=== PATIENT | female | born 1955 | race Caucasian/White ===

== ENCOUNTER 2018-06-06 12:34 | Inpatient (IN) | payer MEDICARE, OTHER ==
[~2018-06-06] VITALS: Ht 167.6 cm; Wt 78.1 kg
[~2018-06-06 12:34] MED LIST: ETOMIDATE 20 MG/10 ML ONE; MIDAZOLAM 1 MG/ML, 5ML ONE; SUCCINYLCHOLINE 20 MG/ML, 10ML ONE
[2018-06-06] MEDS ORDERED: OCTREOTIDE 500 MCG in SODIUM CHLORIDE 0.9% 249 ML IV PRN (12:39)
[2018-06-06] MEDS ORDERED: PANTOPRAZOLE 80 MG in SODIUM CHLORIDE 0.9% 100 ML IV SCH (12:39)
[2018-06-06] MEDS ORDERED: PANTOPRAZOLE 80 MG in SODIUM CHLORIDE 0.9% 50 ML IVPB ONE (12:39)
[2018-06-06] MEDS ORDERED: SODIUM CHLORIDE 0.9% 1,000 ML IV ONE (12:39)
[2018-06-06] MEDS ORDERED: ONDANSETRON 2MG/ML, 2ML ONE (12:55)
[2018-06-06] MEDS ORDERED: SODIUM CHLORIDE FLUSH 10ML SYR IVF ONE (13:00)
[2018-06-06] MEDS ORDERED: SODIUM CHLORIDE 0.9% 1,000ML IVBOLUS ONE (13:00)
[2018-06-06] MEDS ORDERED: OCTREOTIDE 100MCG/ML, 1ML (0.1MG/ML) IV ONE (13:00)
[2018-06-06] MEDS ORDERED: ONDANSETRON 2MG/ML, 2ML IVPush ONE (13:00)
[2018-06-06] MEDS ORDERED: OCTREOTIDE 100MCG/ML, 1ML (0.1MG/ML) ONE (13:01)
[2018-06-06] MEDS ORDERED: LORazepam 2 MG/ML, 1ML ONE ×2 (13:04→14:39)
[2018-06-06 13:08] LABS: MEAN CORPUSCULAR HEMOGLOBIN 24.7 pg (27.0-34.8); MEAN CORPUSCULAR HGB CONC 32.3 g/dL (32.4-35.8); MEAN CORPUSCULAR VOLUME 76.4 fL (80-100); MEAN PLATELET VOLUME 9.3 fL (7.4-10.4); PLATELET COUNT 189 x10^3/uL (130-400); RED BLOOD COUNT 4.25 x10^6/uL (3.82-5.3); RED CELL DISTRIBUTION WIDTH 23.9 % (9.6-15.2)
[2018-06-06 13:15] LABS: INTERNATIONAL NORMALIZED RATIO 1.31 (0.93-1.1); PROTHROMBIN TIME 13.4 Seconds (9.6-11.5)
[2018-06-06 13:16] LABS: ALANINE AMINOTRANSFERASE 16 U/L (12-78); ALBUMIN 2.4 g/dL (3.4-5.0); ANION GAP 8 mmol/L (5-15); CALCIUM 7.3 mg/dL (8.5-10.1); CHLORIDE 111 mmol/L (98-107); CREATININE 0.74 mg/dL (0.55-1.02)
[2018-06-06 13:19] LABS: ALKALINE PHOSPHATASE 108 U/L (45-117); BILIRUBIN,TOTAL 1.3 mg/dL (0.2-1.0); TOTAL PROTEIN 6.3 g/dL (6.4-8.2)
[2018-06-06 13:20] LABS: BASOPHILS # (AUTO) 0.06 x10^3/uL (0-0.1); BASOPHILS % (AUTO) 1 % (0-1); EOSINOPHILS # (AUTO) 0.06 x10^3/uL (0-0.4); EOSINOPHILS % (AUTO) 1 % (1-7); LYMPHOCYTES # (AUTO) 1.12 x10^3/uL (1-3.4); LYMPHOCYTES % (AUTO) 11 % (22-44); MD SCAN; MONOCYTES # (AUTO) 0.65 x10^3/uL (0.2-0.8); MONOCYTES % (AUTO) 6 % (2-9); NEUTROPHILS # (AUTO) 8.41 x10^3/uL (1.8-6.8); NEUTROPHILS % (AUTO) 82 % (42-75)
[2018-06-06] MEDS ORDERED: LORazepam 2 MG/ML, 1ML IVPush ONE ×2 (13:30→15:00)
[2018-06-06 14:19] VITALS: BP 89/56
[2018-06-06] MEDS ORDERED: SODIUM CHLORIDE FLUSH 10ML SYR IVF PRN (14:30)
[2018-06-06] MEDS ORDERED: THIAMINE 100 MG in SODIUM CHLORIDE 0.9% 50 ML IVPB ONE (14:30)
[2018-06-06 14:34] VITALS: BP 98/50
[2018-06-06 14:49] VITALS: BP 101/52
[2018-06-06] MEDS ORDERED: MIDAZOLAM 1 MG/ML, 2ML ONE ×2 (15:28→15:45)
[2018-06-06] MEDS ORDERED: FENTANYL PF 100 MCG/2ML ONE (15:29)
[2018-06-06] MEDS ORDERED: PROPOFOL 100 ML IV PRN (15:54)
[2018-06-06] MEDS ORDERED: PROPOFOL 100 ML IV ONE (15:56)
[2018-06-06] MEDS ORDERED: LABETALOL 5MG/ML, 20ML IVPush PRN (16:00)
[2018-06-06] MEDS ORDERED: ZIPRASIDONE 20 MG INJ IM PRN (16:00)
[2018-06-06] MEDS ORDERED: ONDANSETRON 2MG/ML, 2ML IVPush PRN (16:00)
[2018-06-06] MEDS ORDERED: ONDANSETRON ODT 4 MG PO PRN (16:00)
[2018-06-06] MEDS ORDERED: SUCCINYLCHOLINE 20 MG/ML, 10ML IVPush ONE (16:00)
[2018-06-06] MEDS ORDERED: ETOMIDATE 40 MG/20 ML IVPush ONE (16:00)
[2018-06-06 16:23] VITALS: BP 107/62
[2018-06-06] MEDS ORDERED: MIDAZOLAM 1 MG/ML, 2ML IVPush ONE ×2 (16:30→18:30)
[2018-06-06 16:40] VITALS: BP 93/60
[2018-06-06] MEDS ORDERED: ZIPRASIDONE 20 MG INJ IM ONE (16:46)
[2018-06-06] MEDS: DIAZEPAM 5 MG/ML, 10ML VIAL IV SCH ×2 (17:00→23:51)
[2018-06-06 17:04] LABS: FOLATE LEVEL 4.4 ng/mL (3.1-17.5); FREE T4 (FREE THYROXINE) 0.96 ng/dL (0.76-1.46); THYROID STIMULATING HORMONE 3.32 mIU/L (0.358-3.740)
[2018-06-06 17:06] LABS: MICROSCOPIC INDICATED
[2018-06-06 17:07] LABS: CULTURE INDICATED? YES
[2018-06-06] MEDS ORDERED: PHARMACY MAY ADJ FOR RENAL FX MC SCH (18:00)
[2018-06-06] MEDS ORDERED: LIDOCAINE-MPF 1%, 2ML ENDO PRN (18:00)
[2018-06-06] MEDS ORDERED: MAGNESIUM SULFATE 4 GM in SODIUM CHLORIDE 0.9% 100 ML IV ONE ×2 (18:00)
[2018-06-06] MEDS ORDERED: FENTANYL PF 100 MCG/2ML IV ONE (18:30)
[2018-06-06] MEDS ORDERED: MAGNESIUM SULFATE IN WATER 50 ML IVPB ONE (19:00)
[2018-06-06] MEDS: POTASSIUM CHLORIDE 20 MEQ, MAGNESIUM SULFATE 1 GM, MVI ADULT 10 ML, THIAMINE 200 MG, FO... IV SCH (21:51)
[2018-06-06] MEDS: PANTOPRAZOLE 80 MG in SODIUM CHLORIDE 0.9% 100 ML IV SCH (21:51)
[2018-06-06] MEDS: OCTREOTIDE 500 MCG in SODIUM CHLORIDE 0.9% 249 ML IV SCH (22:42)
[2018-06-06] MEDS ORDERED: ACETAMINOPHEN 650 MG SUPP ONE (23:31)
[2018-06-06] MEDS: ACETAMINOPHEN 325 MG TABLET PO PRN (23:39)
[2018-06-07] MEDS: PROPOFOL 100 ML IV PRN ×3 (01:36→18:24)
[2018-06-07] MEDS: DIAZEPAM 5 MG/ML, 10ML VIAL IV SCH ×4 (04:27→22:56)
[2018-06-07 04:36] LABS: MEAN CORPUSCULAR HEMOGLOBIN 26.7 pg (27.0-34.8); MEAN CORPUSCULAR HGB CONC 32.7 g/dL (32.4-35.8); MEAN CORPUSCULAR VOLUME 81.7 fL (80-100); MEAN PLATELET VOLUME 9.2 fL (7.4-10.4); PLATELET COUNT 150 x10^3/uL (130-400); RED BLOOD COUNT 4.27 x10^6/uL (3.82-5.3); RED CELL DISTRIBUTION WIDTH 22.9 % (9.6-15.2)
[2018-06-07 04:54] LABS: ANISOCYTOSIS 1+; BASOPHILS # (AUTO) 0.08 x10^3/uL (0-0.1); BASOPHILS % (AUTO) 1 % (0-1); EOSINOPHILS % (AUTO) 1 % (1-7); LYMPHOCYTES # (AUTO) 0.94 x10^3/uL (1-3.4); LYMPHOCYTES % (AUTO) 8 % (22-44); MD MORPH REVIEW ONLY; MONOCYTES # (AUTO) 0.69 x10^3/uL (0.2-0.8); MONOCYTES % (AUTO) 6 % (2-9); NEUTROPHILS # (AUTO) 10.69 x10^3/uL (1.8-6.8); NEUTROPHILS % (AUTO) 86 % (42-75)
[2018-06-07 04:55] LABS: <PLATELET ESTIMATE> ADEQUATE; HYPOCHROMIA 1+; OVALOCYTES 1+; POLYCHROMASIA 1+
[2018-06-07 04:56] LABS: LARGE PLATELETS 1+
[2018-06-07 04:57] LABS: ALANINE AMINOTRANSFERASE 14 U/L (12-78); ALKALINE PHOSPHATASE 98 U/L (45-117); BILIRUBIN,TOTAL 2.6 mg/dL (0.2-1.0); CREATININE 0.75 mg/dL (0.55-1.02); TOTAL PROTEIN 5.7 g/dL (6.4-8.2)
[2018-06-07 05:17] LABS: ALBUMIN 2.2 g/dL (3.4-5.0); ANION GAP 6 mmol/L (5-15); CALCIUM 6.7 mg/dL (8.5-10.1); CHLORIDE 112 mmol/L (98-107)
[2018-06-07] MEDS: PANTOPRAZOLE 80 MG in SODIUM CHLORIDE 0.9% 100 ML IV SCH ×2 (07:45→17:23)
[2018-06-07] MEDS: SENNA/DOCUSATE TABLET PO SCH (09:00)
[2018-06-07] MEDS ORDERED: LACTULOSE 3.3 GM/5 ML ORAL.SOL RC ONE ×2 (09:00)
[2018-06-07] MEDS: OCTREOTIDE 500 MCG in SODIUM CHLORIDE 0.9% 249 ML IV SCH (10:12)
[2018-06-07] MEDS: INSULIN LISPRO 100 UNITS/ML, PEN SQ-INSULIN SCH ×3 (11:24→21:00)
[2018-06-07] MEDS ORDERED: IRON SUCROSE COMPLEX 100MG/5ML IV SCH (12:00)
[2018-06-07] MEDS: ERGOCALCIFEROL 50,000 UNIT CAPSULE PO SCH (12:01)
[2018-06-07] MEDS: LEVOTHYROXINE 100 MCG INJ IVPush SCH (12:01)
[2018-06-07] MEDS: PIPERACILLIN/TAZO/PMX 3.375GM 50 ML IV SCH ×2 (13:58→18:10)
[2018-06-07] MEDS: POTASSIUM CHLORIDE 20 MEQ, MAGNESIUM SULFATE 1 GM, MVI ADULT 10 ML, THIAMINE 200 MG, FO... IV SCH (21:05)
[2018-06-07] MEDS: PANTOPRAZOLE 40 MG IV IVPush SCH (21:08)
[2018-06-08] MEDS: PIPERACILLIN/TAZO/PMX 3.375GM 50 ML IV SCH ×4 (00:33→18:27)
[2018-06-08] MEDS: PROPOFOL 100 ML IV PRN ×3 (01:32→20:30)
[2018-06-08] MEDS: ALBUTEROL/IPRATROPIUM 2.5MG/0.5MG, 3 ML INLINE SCH ×6 (02:30→22:41)
[2018-06-08] MEDS: INSULIN LISPRO 100 UNITS/ML, PEN SQ-INSULIN SCH ×4 (03:42→21:21)
[2018-06-08] MEDS: DIAZEPAM 5 MG/ML, 10ML VIAL IV SCH ×4 (04:45→23:25)
[2018-06-08 05:30] LABS: CHLORIDE 111 mmol/L (98-107)
[2018-06-08 05:34] LABS: MEAN CORPUSCULAR HEMOGLOBIN 26.7 pg (27.0-34.8); MEAN CORPUSCULAR HGB CONC 32.5 g/dL (32.4-35.8); PLATELET COUNT 146 x10^3/uL (130-400); RED BLOOD COUNT 3.79 x10^6/uL (3.82-5.3); RED CELL DISTRIBUTION WIDTH 23.9 % (9.6-15.2)
[2018-06-08 05:41] LABS: ALANINE AMINOTRANSFERASE 14 U/L (12-78); ALBUMIN 2.1 g/dL (3.4-5.0); ALKALINE PHOSPHATASE 82 U/L (45-117); ANION GAP 8 mmol/L (5-15); BILIRUBIN,TOTAL 1.2 mg/dL (0.2-1.0); CALCIUM 7.1 mg/dL (8.5-10.1); CREATININE 0.78 mg/dL (0.55-1.02); TOTAL PROTEIN 5.5 g/dL (6.4-8.2)
[2018-06-08 05:57] LABS: BASOPHILS # (AUTO) 0.09 x10^3/uL (0-0.1); BASOPHILS % (AUTO) 1 % (0-1); EOSINOPHILS # (AUTO) 0.23 x10^3/uL (0-0.4); EOSINOPHILS % (AUTO) 2 % (1-7); LYMPHOCYTES # (AUTO) 0.79 x10^3/uL (1-3.4); LYMPHOCYTES % (AUTO) 7 % (22-44); MD SCAN; MONOCYTES # (AUTO) 0.72 x10^3/uL (0.2-0.8); MONOCYTES % (AUTO) 7 % (2-9); NEUTROPHILS # (AUTO) 9.27 x10^3/uL (1.8-6.8); NEUTROPHILS % (AUTO) 84 % (42-75)
[2018-06-08] MEDS: SENNA/DOCUSATE TABLET PO SCH (07:28)
[2018-06-08] MEDS: OCTREOTIDE 500 MCG in SODIUM CHLORIDE 0.9% 249 ML IV SCH (07:33)
[2018-06-08] MEDS: PANTOPRAZOLE 40 MG IV IVPush SCH ×2 (07:33→20:30)
[2018-06-08] MEDS: LEVOTHYROXINE 100 MCG INJ IVPush SCH (07:35)
[2018-06-08] MEDS ORDERED: LACTULOSE 3.3 GM/5 ML ORAL.SOL RC ONE (09:30)
[2018-06-08] MEDS ORDERED: ALBUMIN HUMAN 25% 100 ML IV ONE (14:00)
[2018-06-08] MEDS ORDERED: FUROSEMIDE 20 MG/2 ML IV ONE (15:30)
[2018-06-08] MEDS: POTASSIUM CHLORIDE 20 MEQ, MAGNESIUM SULFATE 1 GM, MVI ADULT 10 ML, THIAMINE 200 MG, FO... IV SCH (21:14)
[2018-06-09] MEDS: PIPERACILLIN/TAZO/PMX 3.375GM 50 ML IV SCH ×2 (00:37→07:22)
[2018-06-09] MEDS: PROPOFOL 100 ML IV PRN ×5 (00:40→23:31)
[2018-06-09] MEDS: ALBUTEROL/IPRATROPIUM 2.5MG/0.5MG, 3 ML INLINE SCH ×6 (02:39→22:30)
[2018-06-09] MEDS: OCTREOTIDE 500 MCG in SODIUM CHLORIDE 0.9% 249 ML IV SCH ×2 (04:53→23:32)
[2018-06-09] MEDS: DIAZEPAM 5 MG/ML, 10ML VIAL IV SCH ×4 (04:54→23:31)
[2018-06-09 05:17] LABS: MEAN CORPUSCULAR HEMOGLOBIN 27.7 pg (27.0-34.8); MEAN CORPUSCULAR HGB CONC 33.4 g/dL (32.4-35.8); MEAN CORPUSCULAR VOLUME 82.8 fL (80-100); MEAN PLATELET VOLUME 8.9 fL (7.4-10.4); PLATELET COUNT 119 x10^3/uL (130-400); RED BLOOD COUNT 3.17 x10^6/uL (3.82-5.3); RED CELL DISTRIBUTION WIDTH 23.9 % (9.6-15.2)
[2018-06-09 05:50] LABS: BASOPHILS # (AUTO) 0.04 x10^3/uL (0-0.1); BASOPHILS % (AUTO) 1 % (0-1); EOSINOPHILS # (AUTO) 0.14 x10^3/uL (0-0.4); EOSINOPHILS % (AUTO) 2 % (1-7); LYMPHOCYTES % (AUTO) 8 % (22-44); MD SCAN; MONOCYTES # (AUTO) 0.55 x10^3/uL (0.2-0.8); MONOCYTES % (AUTO) 8 % (2-9); NEUTROPHILS # (AUTO) 5.94 x10^3/uL (1.8-6.8); NEUTROPHILS % (AUTO) 82 % (42-75)
[2018-06-09] MEDS: INSULIN LISPRO 100 UNITS/ML, PEN SQ-INSULIN SCH ×4 (05:59→23:00)
[2018-06-09] MEDS: CEFTRIAXONE 1,000 MG in SODIUM CHLORIDE 0.9% 50 ML IV SCH (08:12)
[2018-06-09] MEDS: LEVOTHYROXINE 100 MCG INJ IVPush SCH (08:12)
[2018-06-09] MEDS: PANTOPRAZOLE 40 MG IV IVPush SCH ×2 (08:12→20:27)
[2018-06-09] MEDS: NOREPINEPHRINE 4 MG in SODIUM CHLORIDE 0.9% 246 ML IV PRN ×2 (08:13→17:50)
[2018-06-09] MEDS: SENNA/DOCUSATE TABLET PO SCH (08:17)
[2018-06-09] MEDS: POTASSIUM CHLORIDE 20 MEQ, MAGNESIUM SULFATE 1 GM, MVI ADULT 10 ML, THIAMINE 200 MG, FO... IV SCH (20:25)
[2018-06-10] MEDS: ALBUTEROL/IPRATROPIUM 2.5MG/0.5MG, 3 ML INLINE SCH ×6 (02:18→22:18)
[2018-06-10] MEDS: PROPOFOL 100 ML IV PRN (03:43)
[2018-06-10] MEDS ORDERED: CATHFLO-ALTEPLASE 2 MG/2 ML CATHFLUSH ONE (04:00)
[2018-06-10 05:16] LABS: MEAN CORPUSCULAR HEMOGLOBIN 27.2 pg (27.0-34.8); MEAN CORPUSCULAR HGB CONC 32.8 g/dL (32.4-35.8); MEAN PLATELET VOLUME 9.2 fL (7.4-10.4); PLATELET COUNT 127 x10^3/uL (130-400); RED CELL DISTRIBUTION WIDTH 23.7 % (9.6-15.2)
[2018-06-10] MEDS: DIAZEPAM 5 MG/ML, 10ML VIAL IV SCH ×4 (05:25→23:27)
[2018-06-10] MEDS: INSULIN LISPRO 100 UNITS/ML, PEN SQ-INSULIN SCH ×2 (05:39→12:30)
[2018-06-10 05:55] LABS: BASOPHILS # (AUTO) 0.03 x10^3/uL (0-0.1); BASOPHILS % (AUTO) 1 % (0-1); EOSINOPHILS # (AUTO) 0.13 x10^3/uL (0-0.4); EOSINOPHILS % (AUTO) 3 % (1-7); LYMPHOCYTES # (AUTO) 0.42 x10^3/uL (1-3.4); LYMPHOCYTES % (AUTO) 8 % (22-44); MD SCAN; MONOCYTES # (AUTO) 0.46 x10^3/uL (0.2-0.8); MONOCYTES % (AUTO) 9 % (2-9); NEUTROPHILS # (AUTO) 4.19 x10^3/uL (1.8-6.8); NEUTROPHILS % (AUTO) 80 % (42-75)
[2018-06-10] MEDS: PANTOPRAZOLE 40 MG IV IVPush SCH ×2 (08:35→19:55)
[2018-06-10] MEDS: CEFTRIAXONE 1,000 MG in SODIUM CHLORIDE 0.9% 50 ML IV SCH (08:44)
[2018-06-10] MEDS: SENNA/DOCUSATE TABLET PO SCH (09:00)
[2018-06-10] MEDS: QUETIAPINE 25MG TABLET PO SCH ×2 (09:00→15:04)
[2018-06-10] MEDS: LEVOTHYROXINE 100 MCG INJ IVPush SCH (09:00)
[2018-06-10] MEDS ORDERED: DEXMEDETOMIDINE 1,000 MCG in SODIUM CHLORIDE 0.9% 240 ML IV PRN (15:00)
[2018-06-10] MEDS: OCTREOTIDE 500 MCG in SODIUM CHLORIDE 0.9% 249 ML IV SCH (19:45)
[2018-06-10] MEDS: NOREPINEPHRINE 4 MG in SODIUM CHLORIDE 0.9% 246 ML IV PRN (19:46)
[2018-06-10] MEDS: POTASSIUM CHLORIDE 20 MEQ, MAGNESIUM SULFATE 1 GM, MVI ADULT 10 ML, THIAMINE 200 MG, FO... IV SCH (23:27)
[2018-06-11] MEDS: QUETIAPINE 25MG TABLET PO SCH ×3 (00:18→17:00)
[2018-06-11] MEDS: ALBUTEROL/IPRATROPIUM 2.5MG/0.5MG, 3 ML INLINE SCH ×4 (02:34→14:43)
[2018-06-11 03:06] LABS: MEAN CORPUSCULAR HEMOGLOBIN 27.4 pg (27.0-34.8); MEAN CORPUSCULAR VOLUME 82.9 fL (80-100); MEAN PLATELET VOLUME 8.2 fL (7.4-10.4); PLATELET COUNT 129 x10^3/uL (130-400); RED BLOOD COUNT 3.47 x10^6/uL (3.82-5.3); RED CELL DISTRIBUTION WIDTH 24.6 % (9.6-15.2)
[2018-06-11 03:17] LABS: ANION GAP 7 mmol/L (5-15); CALCIUM 7.2 mg/dL (8.5-10.1); CHLORIDE 113 mmol/L (98-107); CREATININE 0.47 mg/dL (0.55-1.02)
[2018-06-11 03:23] LABS: BASOPHILS # (AUTO) 0.04 x10^3/uL (0-0.1); BASOPHILS % (AUTO) 1 % (0-1); EOSINOPHILS # (AUTO) 0.11 x10^3/uL (0-0.4); EOSINOPHILS % (AUTO) 2 % (1-7); LYMPHOCYTES # (AUTO) 0.49 x10^3/uL (1-3.4); LYMPHOCYTES % (AUTO) 10 % (22-44); MD SCAN; MONOCYTES % (AUTO) 8 % (2-9); NEUTROPHILS # (AUTO) 3.78 x10^3/uL (1.8-6.8); NEUTROPHILS % (AUTO) 78 % (42-75)
[2018-06-11] MEDS: DIAZEPAM 5 MG/ML, 10ML VIAL IV SCH ×3 (05:00→10:53)
[2018-06-11] MEDS: CEFTRIAXONE 1,000 MG in SODIUM CHLORIDE 0.9% 50 ML IV SCH (07:38)
[2018-06-11] MEDS ORDERED: MAGNESIUM SULFATE 4 GM in SODIUM CHLORIDE 0.9% 100 ML IV ONE (08:30)
[2018-06-11] MEDS ORDERED: POTASSIUM CHLORIDE 10% 40 MEQ/30 ML UDC PO ONE (08:30)
[2018-06-11] MEDS ORDERED: MAGNESIUM SULFATE PMX 4GM/100M 100 ML IV ONE (09:00)
[2018-06-11] MEDS: SENNA/DOCUSATE TABLET PO SCH (09:23)
[2018-06-11] MEDS: LEVOTHYROXINE 100 MCG INJ IVPush SCH (09:23)
[2018-06-11] MEDS ORDERED: SODIUM CHLORIDE 0.9%, 500ML IVBOLUS ONE (10:30)
[2018-06-11] MEDS ORDERED: DIAZEPAM 5 MG/ML, 10ML VIAL IV PRN (12:30)
[2018-06-11] MEDS: NOREPINEPHRINE 4 MG in SODIUM CHLORIDE 0.9% 246 ML IV PRN (14:18)
[2018-06-11] MEDS ORDERED: ALBUTEROL/IPRATROPIUM 2.5MG/0.5MG, 3 ML NPPB PRN (16:00)
[2018-06-11] MEDS: ALBUTEROL/IPRATROPIUM 2.5MG/0.5MG, 3 ML NPPB SCH ×3 (16:00→22:42)
[2018-06-11] MEDS ORDERED: ALBUTEROL/IPRATROPIUM 2.5MG/0.5MG, 3 ML NPPB SCH (18:30)
[2018-06-11] MEDS ORDERED: FUROSEMIDE 40 MG/4 ML IV ONE (21:30)
[2018-06-11] MEDS ORDERED: FUROSEMIDE 40 MG/4 ML ONE (21:34)
[2018-06-11] MEDS: POTASSIUM CHLORIDE 20 MEQ, MAGNESIUM SULFATE 1 GM, MVI ADULT 10 ML, THIAMINE 200 MG, FO... IV SCH (22:10)
[2018-06-12] MEDS: QUETIAPINE 25MG TABLET PO SCH ×3 (01:00→16:23)
[2018-06-12] MEDS: ALBUTEROL/IPRATROPIUM 2.5MG/0.5MG, 3 ML NPPB SCH ×3 (03:39→11:34)
[2018-06-12 05:12] LABS: ALBUMIN 2.4 g/dL (3.4-5.0); ANION GAP 6 mmol/L (5-15); CALCIUM 7.3 mg/dL (8.5-10.1); CHLORIDE 107 mmol/L (98-107)
[2018-06-12 05:13] LABS: MEAN CORPUSCULAR HEMOGLOBIN 27.6 pg (27.0-34.8); MEAN CORPUSCULAR HGB CONC 33.1 g/dL (32.4-35.8); MEAN CORPUSCULAR VOLUME 83.3 fL (80-100); MEAN PLATELET VOLUME 8.2 fL (7.4-10.4); PLATELET COUNT 167 x10^3/uL (130-400); RED BLOOD COUNT 3.32 x10^6/uL (3.82-5.3); RED CELL DISTRIBUTION WIDTH 25.7 % (9.6-15.2)
[2018-06-12 05:17] LABS: ALANINE AMINOTRANSFERASE 14 U/L (12-78); ALKALINE PHOSPHATASE 83 U/L (45-117); BILIRUBIN,TOTAL 0.9 mg/dL (0.2-1.0); CREATININE 0.55 mg/dL (0.55-1.02); TOTAL PROTEIN 5.8 g/dL (6.4-8.2); TRIGLYCERIDES 137 mg/dL (50-200)
[2018-06-12 05:45] LABS: ANISOCYTOSIS 2+; BASOPHILS # (AUTO) 0.04 x10^3/uL (0-0.1); BASOPHILS % (AUTO) 1 % (0-1); EOSINOPHILS % (AUTO) 1 % (1-7); LYMPHOCYTES # (AUTO) 0.58 x10^3/uL (1-3.4); LYMPHOCYTES % (AUTO) 8 % (22-44); MD MORPH REVIEW ONLY; MONOCYTES # (AUTO) 0.51 x10^3/uL (0.2-0.8); MONOCYTES % (AUTO) 7 % (2-9); NEUTROPHILS # (AUTO) 6.17 x10^3/uL (1.8-6.8); NEUTROPHILS % (AUTO) 83 % (42-75); POLYCHROMASIA 1+
[2018-06-12 05:46] LABS: <PLATELET ESTIMATE> ADEQUATE; <PLT MORPHOLOGY> NORMAL PLT MORPH
[2018-06-12 05:55] LABS: FIO2 100 %
[2018-06-12 05:56] LABS: O2 FLOW 60 L/min
[2018-06-12] MEDS: NOREPINEPHRINE 4 MG in SODIUM CHLORIDE 0.9% 246 ML IV PRN ×2 (06:03→15:19)
[2018-06-12] MEDS: CEFTRIAXONE 1,000 MG in SODIUM CHLORIDE 0.9% 50 ML IV SCH (09:31)
[2018-06-12] MEDS: LEVOTHYROXINE 100 MCG INJ IVPush SCH (09:32)
[2018-06-12] MEDS: SENNA/DOCUSATE TABLET PO SCH (09:32)
[2018-06-12] MEDS: PANTOPRAZOLE 40 MG IV IVPush SCH (09:32)
[2018-06-12] MEDS: ALBUTEROL/IPRATROPIUM 2.5MG/0.5MG, 3 ML IPPB SCH ×3 (14:31→22:50)
[2018-06-12] MEDS ORDERED: MAGNESIUM SULFATE PMX 4GM/100M 100 ML IVPB ONE (17:00)
[2018-06-12] MEDS ORDERED: POTASSIUM CHLORIDE 10% 40 MEQ/30 ML UDC PO ONE (17:00)
[2018-06-12] MEDS ORDERED: MAGNESIUM SULFATE IN WATER 50 ML IVPB ONE (17:00)
[2018-06-12] MEDS ORDERED: MAGNESIUM SULFATE 4 GM in SODIUM CHLORIDE 0.9% 100 ML IV ONE (17:00)
[2018-06-13] MEDS: NOREPINEPHRINE 4 MG in SODIUM CHLORIDE 0.9% 246 ML IV PRN ×3 (00:34→20:51)
[2018-06-13] MEDS: ALBUTEROL/IPRATROPIUM 2.5MG/0.5MG, 3 ML IPPB SCH ×2 (02:47→06:50)
[2018-06-13 04:59] LABS: MEAN CORPUSCULAR HEMOGLOBIN 27.1 pg (27.0-34.8); MEAN CORPUSCULAR HGB CONC 32.6 g/dL (32.4-35.8); MEAN PLATELET VOLUME 8.5 fL (7.4-10.4); PLATELET COUNT 151 x10^3/uL (130-400); RED BLOOD COUNT 3.16 x10^6/uL (3.82-5.3); RED CELL DISTRIBUTION WIDTH 26.3 % (9.6-15.2)
[2018-06-13 05:03] LABS: ALANINE AMINOTRANSFERASE 11 U/L (12-78); ALBUMIN 2.2 g/dL (3.4-5.0); ANION GAP 6 mmol/L (5-15); CALCIUM 7.1 mg/dL (8.5-10.1); CHLORIDE 110 mmol/L (98-107); CREATININE 0.45 mg/dL (0.55-1.02)
[2018-06-13 05:05] LABS: ALKALINE PHOSPHATASE 91 U/L (45-117); BILIRUBIN,TOTAL 0.6 mg/dL (0.2-1.0); TOTAL PROTEIN 5.6 g/dL (6.4-8.2)
[2018-06-13 06:01] LABS: BASOPHILS # (AUTO) 0.03 x10^3/uL (0-0.1); BASOPHILS % (AUTO) 1 % (0-1); EOSINOPHILS # (AUTO) 0.08 x10^3/uL (0-0.4); EOSINOPHILS % (AUTO) 2 % (1-7); LYMPHOCYTES # (AUTO) 0.45 x10^3/uL (1-3.4); LYMPHOCYTES % (AUTO) 9 % (22-44); MD SCAN; MONOCYTES # (AUTO) 0.32 x10^3/uL (0.2-0.8); MONOCYTES % (AUTO) 6 % (2-9); NEUTROPHILS # (AUTO) 4.35 x10^3/uL (1.8-6.8); NEUTROPHILS % (AUTO) 83 % (42-75)
[2018-06-13] MEDS: CEFTRIAXONE 1,000 MG in SODIUM CHLORIDE 0.9% 50 ML IV SCH (07:40)
[2018-06-13] MEDS: LEVOTHYROXINE 100 MCG INJ IVPush SCH (08:52)
[2018-06-13] MEDS: PANTOPRAZOLE 40 MG IV IVPush SCH (08:52)
[2018-06-13] MEDS: SENNA/DOCUSATE TABLET PO SCH (09:05)
[2018-06-13] MEDS ORDERED: PROPOFOL 100 ML IV ONE (10:59)
[2018-06-13] MEDS ORDERED: MIDAZOLAM 1 MG/ML, 5ML IVPush ONE (11:00)
[2018-06-13] MEDS ORDERED: PROPOFOL 100 ML IV PRN ×2 (11:00→11:01)
[2018-06-13] MEDS ORDERED: SUCCINYLCHOLINE 20 MG/ML, 10ML IVPush ONE (11:00)
[2018-06-13] MEDS ORDERED: GLUCAGON 1 MG IM PRN (11:30)
[2018-06-13] MEDS ORDERED: SENNA/DOCUSATE TABLET NG PRN (11:30)
[2018-06-13] MEDS: ALBUTEROL/IPRATROPIUM 2.5MG/0.5MG, 3 ML INLINE SCH ×4 (11:30→22:09)
[2018-06-13] MEDS ORDERED: PHARMACY MAY ADJ FOR RENAL FX MC SCH (11:30)
[2018-06-13] MEDS ORDERED: DEXTROSE 4 GM TAB.CHEW PO PRN (11:30)
[2018-06-13] MEDS ORDERED: LIDOCAINE-MPF 1%, 2ML ENDO PRN (11:30)
[2018-06-13] MEDS ORDERED: DEXTROSE 50%, 50ML SYRINGE IVPush PRN (11:30)
[2018-06-13 11:38] LABS: CHOL/HDL RATIO 3.9
[2018-06-13] MEDS: INSULIN LISPRO 100 UNITS/ML, PEN SQ-INSULIN SCH ×3 (11:56→20:59)
[2018-06-13] MEDS: SODIUM CHLORIDE FLUSH 10ML SYR IVF SCH ×2 (11:58→21:00)
[2018-06-13 12:23] LABS: FIO2 100 %
[2018-06-13] MEDS: LACTULOSE 20 GM/30 ML UDC NG PRN (14:53)
[2018-06-13] MEDS ORDERED: SODIUM CHLORIDE 0.9%, 500ML IVBOLUS ONE (15:30)
[2018-06-13] MEDS: ACETAMINOPHEN 325 MG TABLET PO PRN (16:26)
[2018-06-13] MEDS ORDERED: MIDAZOLAM 1 MG/ML, 5ML ONE (19:00)
[2018-06-13] MEDS ORDERED: SUCCINYLCHOLINE 20 MG/ML, 10ML ONE (19:00)
[2018-06-14] MEDS: ALBUTEROL/IPRATROPIUM 2.5MG/0.5MG, 3 ML INLINE SCH ×6 (02:08→22:51)
[2018-06-14 04:18] LABS: ANION GAP 5 mmol/L (5-15); CALCIUM 7.9 mg/dL (8.5-10.1); CHLORIDE 111 mmol/L (98-107); CREATININE 0.52 mg/dL (0.55-1.02)
[2018-06-14 04:25] LABS: MEAN CORPUSCULAR HGB CONC 32.2 g/dL (32.4-35.8); MEAN CORPUSCULAR VOLUME 83.7 fL (80-100); MEAN PLATELET VOLUME 8.7 fL (7.4-10.4); PLATELET COUNT 164 x10^3/uL (130-400); RED BLOOD COUNT 3.24 x10^6/uL (3.82-5.3); RED CELL DISTRIBUTION WIDTH 25.2 % (9.6-15.2)
[2018-06-14 04:46] LABS: ANISOCYTOSIS 1+; BASOPHILS # (AUTO) 0.02 x10^3/uL (0-0.1); BASOPHILS % (AUTO) 0 % (0-1); EOSINOPHILS # (AUTO) 0.07 x10^3/uL (0-0.4); EOSINOPHILS % (AUTO) 1 % (1-7); LYMPHOCYTES # (AUTO) 0.42 x10^3/uL (1-3.4); LYMPHOCYTES % (AUTO) 5 % (22-44); MD MORPH REVIEW ONLY; MONOCYTES # (AUTO) 0.38 x10^3/uL (0.2-0.8); MONOCYTES % (AUTO) 5 % (2-9); NEUTROPHILS # (AUTO) 6.87 x10^3/uL (1.8-6.8); NEUTROPHILS % (AUTO) 89 % (42-75); POLYCHROMASIA 1+
[2018-06-14 04:47] LABS: <PLATELET ESTIMATE> ADEQUATE; <PLT MORPHOLOGY> NORMAL PLT MORPH; OVALOCYTES 1+
[2018-06-14] MEDS: INSULIN LISPRO 100 UNITS/ML, PEN SQ-INSULIN SCH ×4 (06:40→23:31)
[2018-06-14] MEDS ORDERED: MAGNESIUM SULFATE PMX 4GM/100M 100 ML IVPB ONE (07:00)
[2018-06-14] MEDS: CEFTRIAXONE 1,000 MG in SODIUM CHLORIDE 0.9% 50 ML IV SCH (08:09)
[2018-06-14] MEDS: SENNA/DOCUSATE TABLET PO SCH (08:54)
[2018-06-14] MEDS: PANTOPRAZOLE 40 MG IV IVPush SCH (08:54)
[2018-06-14] MEDS: SODIUM CHLORIDE FLUSH 10ML SYR IVF SCH ×2 (08:56→21:43)
[2018-06-14] MEDS: LEVOTHYROXINE 100 MCG INJ IVPush SCH (10:16)
[2018-06-14] MEDS: ERGOCALCIFEROL 50,000 UNIT CAPSULE PO SCH (11:04)
[2018-06-14] MEDS: THIAMINE 100MG TABLET PO SCH (14:36)
[2018-06-14] MEDS: FOLIC ACID 1 MG TABLET PO SCH (14:36)
[2018-06-14] MEDS: POLYETHYLENE GLYCOL 17 GM PACKET PO PRN (23:31)
[2018-06-14] MEDS: SENNOSIDES 8.8 MG/5 ML ORAL SOL NG PRN (23:42)
[2018-06-15] MEDS: ALBUTEROL/IPRATROPIUM 2.5MG/0.5MG, 3 ML INLINE SCH ×6 (02:33→22:24)
[2018-06-15 04:21] LABS: ANION GAP 4 mmol/L (5-15); CALCIUM 7.8 mg/dL (8.5-10.1); CHLORIDE 106 mmol/L (98-107); CREATININE 0.54 mg/dL (0.55-1.02); MEAN CORPUSCULAR HEMOGLOBIN 26.9 pg (27.0-34.8); MEAN CORPUSCULAR HGB CONC 32.4 g/dL (32.4-35.8); MEAN CORPUSCULAR VOLUME 83.2 fL (80-100); MEAN PLATELET VOLUME 8.5 fL (7.4-10.4); PLATELET COUNT 171 x10^3/uL (130-400); RED BLOOD COUNT 3.02 x10^6/uL (3.82-5.3); RED CELL DISTRIBUTION WIDTH 26.6 % (9.6-15.2); TRIGLYCERIDES 96 mg/dL (50-200)
[2018-06-15 04:45] LABS: BASOPHILS # (AUTO) 0.04 x10^3/uL (0-0.1); BASOPHILS % (AUTO) 1 % (0-1); EOSINOPHILS # (AUTO) 0.12 x10^3/uL (0-0.4); EOSINOPHILS % (AUTO) 2 % (1-7); LYMPHOCYTES # (AUTO) 0.51 x10^3/uL (1-3.4); LYMPHOCYTES % (AUTO) 8 % (22-44); MD SCAN; MONOCYTES # (AUTO) 0.56 x10^3/uL (0.2-0.8); MONOCYTES % (AUTO) 9 % (2-9); NEUTROPHILS # (AUTO) 4.87 x10^3/uL (1.8-6.8); NEUTROPHILS % (AUTO) 80 % (42-75)
[2018-06-15] MEDS: INSULIN LISPRO 100 UNITS/ML, PEN SQ-INSULIN SCH ×4 (04:53→22:29)
[2018-06-15] MEDS: SODIUM CHLORIDE FLUSH 10ML SYR IVF SCH ×2 (07:01→19:50)
[2018-06-15] MEDS: CEFTRIAXONE 1,000 MG in SODIUM CHLORIDE 0.9% 50 ML IV SCH (07:01)
[2018-06-15] MEDS: LACTULOSE 20 GM/30 ML UDC NG PRN (08:12)
[2018-06-15] MEDS: LEVOTHYROXINE 100 MCG INJ IVPush SCH (08:13)
[2018-06-15] MEDS: PANTOPRAZOLE 40 MG IV IVPush SCH (08:13)
[2018-06-15] MEDS: SENNA/DOCUSATE TABLET PO SCH (08:13)
[2018-06-15] MEDS ORDERED: OMNIPAQUE 350 MG/ML, 100ML BOTTLE ONE (09:14)
[2018-06-15] MEDS: FOLIC ACID 1 MG TABLET PO SCH (12:35)
[2018-06-15] MEDS: THIAMINE 100MG TABLET PO SCH (12:35)
[2018-06-15] MEDS ORDERED: MAGNESIUM SULFATE PMX 4GM/100M 100 ML IV ONE (17:30)
[2018-06-15] MEDS: POLYETHYLENE GLYCOL 17 GM PACKET PO PRN (19:50)
[2018-06-16] MEDS: ALBUTEROL/IPRATROPIUM 2.5MG/0.5MG, 3 ML INLINE SCH ×6 (02:32→22:19)
[2018-06-16 04:35] LABS: MEAN CORPUSCULAR HEMOGLOBIN 27.2 pg (27.0-34.8); MEAN CORPUSCULAR HGB CONC 32.4 g/dL (32.4-35.8); MEAN CORPUSCULAR VOLUME 84.1 fL (80-100); MEAN PLATELET VOLUME 8.6 fL (7.4-10.4); PLATELET COUNT 185 x10^3/uL (130-400); RED BLOOD COUNT 2.86 x10^6/uL (3.82-5.3); RED CELL DISTRIBUTION WIDTH 25.9 % (9.6-15.2)
[2018-06-16 04:36] LABS: ANION GAP 5 mmol/L (5-15); CALCIUM 7.7 mg/dL (8.5-10.1); CHLORIDE 104 mmol/L (98-107); CREATININE 0.56 mg/dL (0.55-1.02); TRIGLYCERIDES 97 mg/dL (50-200)
[2018-06-16] MEDS: INSULIN LISPRO 100 UNITS/ML, PEN SQ-INSULIN SCH ×4 (04:42→23:05)
[2018-06-16 04:52] LABS: BASOPHILS # (AUTO) 0.01 x10^3/uL (0-0.1); BASOPHILS % (AUTO) 0 % (0-1); EOSINOPHILS # (AUTO) 0.08 x10^3/uL (0-0.4); EOSINOPHILS % (AUTO) 1 % (1-7); LYMPHOCYTES # (AUTO) 0.47 x10^3/uL (1-3.4); LYMPHOCYTES % (AUTO) 8 % (22-44); MD SCAN; MONOCYTES # (AUTO) 0.46 x10^3/uL (0.2-0.8); MONOCYTES % (AUTO) 8 % (2-9); NEUTROPHILS # (AUTO) 4.75 x10^3/uL (1.8-6.8); NEUTROPHILS % (AUTO) 82 % (42-75)
[2018-06-16 05:47] VITALS: BP 96/46
[2018-06-16] MEDS: SODIUM CHLORIDE FLUSH 10ML SYR IVF SCH ×2 (07:57→21:00)
[2018-06-16] MEDS: PANTOPRAZOLE 40 MG IV IVPush SCH (07:57)
[2018-06-16] MEDS: SENNA/DOCUSATE TABLET PO SCH (07:57)
[2018-06-16] MEDS: LEVOTHYROXINE 100 MCG INJ IVPush SCH (07:58)
[2018-06-16] MEDS: LACTULOSE 20 GM/30 ML UDC NG PRN (07:59)
[2018-06-16] MEDS: CEFTRIAXONE 1,000 MG in SODIUM CHLORIDE 0.9% 50 ML IV SCH (08:00)
[2018-06-16] MEDS ORDERED: PINK LADY ENEMA 490 ML BOTTLE PR ONE (08:30)
[2018-06-16] MEDS ORDERED: FUROSEMIDE 20 MG/2 ML IV ONE (09:31)
[2018-06-16] MEDS: FOLIC ACID 1 MG TABLET PO SCH (13:24)
[2018-06-16] MEDS: THIAMINE 100MG TABLET PO SCH (13:24)
[2018-06-16] MEDS: FUROSEMIDE 20 MG/2 ML IV SCH (17:06)
[2018-06-17] MEDS: ALBUTEROL/IPRATROPIUM 2.5MG/0.5MG, 3 ML INLINE SCH ×6 (02:24→22:23)
[2018-06-17 04:48] VITALS: BP 97/38
[2018-06-17] MEDS: INSULIN LISPRO 100 UNITS/ML, PEN SQ-INSULIN SCH ×4 (04:49→20:05)
[2018-06-17 07:24] LABS: MEAN CORPUSCULAR HEMOGLOBIN 26.9 pg (27.0-34.8); MEAN CORPUSCULAR HGB CONC 32.7 g/dL (32.4-35.8); MEAN CORPUSCULAR VOLUME 82.5 fL (80-100); MEAN PLATELET VOLUME 8.6 fL (7.4-10.4); PLATELET COUNT 187 x10^3/uL (130-400); RED CELL DISTRIBUTION WIDTH 25.4 % (9.6-15.2)
[2018-06-17 07:34] LABS: ANION GAP 6 mmol/L (5-15); CALCIUM 7.8 mg/dL (8.5-10.1); CHLORIDE 101 mmol/L (98-107); CREATININE 0.59 mg/dL (0.55-1.02)
[2018-06-17 07:39] LABS: BASOPHILS # (AUTO) 0.05 x10^3/uL (0-0.1); BASOPHILS % (AUTO) 1 % (0-1); EOSINOPHILS # (AUTO) 0.11 x10^3/uL (0-0.4); EOSINOPHILS % (AUTO) 2 % (1-7); LYMPHOCYTES # (AUTO) 0.46 x10^3/uL (1-3.4); LYMPHOCYTES % (AUTO) 7 % (22-44); MD SCAN; MONOCYTES # (AUTO) 0.57 x10^3/uL (0.2-0.8); MONOCYTES % (AUTO) 8 % (2-9); NEUTROPHILS # (AUTO) 5.86 x10^3/uL (1.8-6.8); NEUTROPHILS % (AUTO) 83 % (42-75)
[2018-06-17] MEDS: FUROSEMIDE 20 MG/2 ML IV SCH ×2 (07:43→20:04)
[2018-06-17] MEDS: CEFTRIAXONE 1,000 MG in SODIUM CHLORIDE 0.9% 50 ML IV SCH (07:43)
[2018-06-17] MEDS: SODIUM CHLORIDE FLUSH 10ML SYR IVF SCH ×2 (07:44→20:04)
[2018-06-17] MEDS: SENNA/DOCUSATE TABLET PO SCH (07:44)
[2018-06-17] MEDS: PANTOPRAZOLE 40 MG IV IVPush SCH (07:50)
[2018-06-17] MEDS: LEVOTHYROXINE 100 MCG INJ IVPush SCH (07:50)
[2018-06-17] MEDS: INSULIN GLARGINE 100 UNITS/ML, PEN SQ-INSULIN SCH ×2 (09:47→20:04)
[2018-06-17] MEDS: BISACODYL 10 MG SUPP PR PRN (10:25)
[2018-06-17] MEDS ORDERED: MAGNESIUM SULFATE 4 GM in SODIUM CHLORIDE 0.9% 100 ML IV ONE (10:30)
[2018-06-17] MEDS: THIAMINE 100MG TABLET PO SCH (13:54)
[2018-06-17] MEDS: FOLIC ACID 1 MG TABLET PO SCH (13:55)
[2018-06-18] MEDS: ALBUTEROL/IPRATROPIUM 2.5MG/0.5MG, 3 ML INLINE SCH ×6 (02:29→21:10)
[2018-06-18 03:05] LABS: ANION GAP 7 mmol/L (5-15); CALCIUM 7.9 mg/dL (8.5-10.1); CHLORIDE 100 mmol/L (98-107); MEAN CORPUSCULAR HGB CONC 33.2 g/dL (32.4-35.8); MEAN CORPUSCULAR VOLUME 84.3 fL (80-100); MEAN PLATELET VOLUME 9.3 fL (7.4-10.4); PLATELET COUNT 197 x10^3/uL (130-400); RED BLOOD COUNT 2.72 x10^6/uL (3.82-5.3); RED CELL DISTRIBUTION WIDTH 25.1 % (9.6-15.2); TRIGLYCERIDES 91 mg/dL (50-200)
[2018-06-18 03:33] LABS: BASOPHILS # (AUTO) 0.03 x10^3/uL (0-0.1); BASOPHILS % (AUTO) 0 % (0-1); EOSINOPHILS # (AUTO) 0.12 x10^3/uL (0-0.4); EOSINOPHILS % (AUTO) 2 % (1-7); LYMPHOCYTES % (AUTO) 7 % (22-44); MD MORPH REVIEW ONLY; MONOCYTES % (AUTO) 8 % (2-9); NEUTROPHILS # (AUTO) 5.98 x10^3/uL (1.8-6.8); NEUTROPHILS % (AUTO) 83 % (42-75)
[2018-06-18 03:35] LABS: ANISOCYTOSIS 2+
[2018-06-18 03:36] LABS: POLYCHROMASIA 1+
[2018-06-18 03:37] LABS: OVALOCYTES 1+
[2018-06-18 03:38] LABS: <PLATELET ESTIMATE> ADEQUATE; TOXIC GRAN 1+
[2018-06-18 03:39] LABS: LARGE PLATELETS 1+
[2018-06-18] MEDS: INSULIN LISPRO 100 UNITS/ML, PEN SQ-INSULIN SCH ×4 (04:46→22:42)
[2018-06-18 06:05] VITALS: BP 84/43
[2018-06-18] MEDS: CEFTRIAXONE 1,000 MG in SODIUM CHLORIDE 0.9% 50 ML IV SCH (07:29)
[2018-06-18] MEDS: PANTOPRAZOLE 40 MG IV IVPush SCH (09:12)
[2018-06-18] MEDS: LEVOTHYROXINE 100 MCG INJ IVPush SCH (09:13)
[2018-06-18] MEDS: SODIUM CHLORIDE FLUSH 10ML SYR IVF SCH ×2 (09:13→20:43)
[2018-06-18] MEDS: SENNA/DOCUSATE TABLET PO SCH (09:13)
[2018-06-18] MEDS: INSULIN GLARGINE 100 UNITS/ML, PEN SQ-INSULIN SCH ×2 (09:18→22:41)
[2018-06-18] MEDS: THIAMINE 100MG TABLET PO SCH (13:19)
[2018-06-18] MEDS: FOLIC ACID 1 MG TABLET PO SCH (13:19)
[2018-06-19] MEDS: ALBUTEROL/IPRATROPIUM 2.5MG/0.5MG, 3 ML INLINE SCH ×6 (01:22→23:11)
[2018-06-19 04:29] VITALS: BP 97/47
[2018-06-19 04:50] LABS: ANION GAP 8 mmol/L (5-15); CALCIUM 7.7 mg/dL (8.5-10.1); CHLORIDE 99 mmol/L (98-107); CREATININE 0.68 mg/dL (0.55-1.02); TRIGLYCERIDES 98 mg/dL (50-200)
[2018-06-19] MEDS: INSULIN LISPRO 100 UNITS/ML, PEN SQ-INSULIN SCH ×4 (05:33→22:45)
[2018-06-19 05:43] LABS: FIO2 80 %
[2018-06-19 06:08] LABS: MEAN CORPUSCULAR HEMOGLOBIN 27.7 pg (27.0-34.8); MEAN CORPUSCULAR VOLUME 83.8 fL (80-100); MEAN PLATELET VOLUME 9.5 fL (7.4-10.4); PLATELET COUNT 190 x10^3/uL (130-400); RED BLOOD COUNT 2.75 x10^6/uL (3.82-5.3); RED CELL DISTRIBUTION WIDTH 25.6 % (9.6-15.2)
[2018-06-19] MEDS: ACETAMINOPHEN 325 MG TABLET PO PRN ×2 (06:20→09:08)
[2018-06-19 06:29] LABS: BASOPHILS # (AUTO) 0.02 x10^3/uL (0-0.1); BASOPHILS % (AUTO) 0 % (0-1); EOSINOPHILS # (AUTO) 0.11 x10^3/uL (0-0.4); EOSINOPHILS % (AUTO) 2 % (1-7); LYMPHOCYTES # (AUTO) 0.42 x10^3/uL (1-3.4); LYMPHOCYTES % (AUTO) 6 % (22-44); MD SCAN; MONOCYTES # (AUTO) 0.62 x10^3/uL (0.2-0.8); MONOCYTES % (AUTO) 9 % (2-9); NEUTROPHILS # (AUTO) 5.81 x10^3/uL (1.8-6.8); NEUTROPHILS % (AUTO) 83 % (42-75)
[2018-06-19] MEDS ORDERED: MAGNESIUM SULFATE PMX 4GM/100M 100 ML IV ONE (07:30)
[2018-06-19] MEDS: CEFTRIAXONE 1,000 MG in SODIUM CHLORIDE 0.9% 50 ML IV SCH (08:54)
[2018-06-19] MEDS ORDERED: HYDROcodone/APAP 5/325 TABLET ONE ×2 (10:45→14:50)
[2018-06-19] MEDS: SENNA/DOCUSATE TABLET PO SCH (10:46)
[2018-06-19] MEDS: PANTOPRAZOLE 40 MG IV IVPush SCH (10:54)
[2018-06-19] MEDS: LEVOTHYROXINE 100 MCG INJ IVPush SCH (10:55)
[2018-06-19] MEDS: SODIUM CHLORIDE FLUSH 10ML SYR IVF SCH ×2 (11:04→21:47)
[2018-06-19] MEDS: INSULIN GLARGINE 100 UNITS/ML, PEN SQ-INSULIN SCH ×2 (11:20→21:46)
[2018-06-19] MEDS: THIAMINE 100MG TABLET PO SCH (14:35)
[2018-06-19] MEDS: FOLIC ACID 1 MG TABLET PO SCH (14:35)
[2018-06-19] MEDS: HYDROcodone/APAP 5/325 TABLET PO PRN ×3 (15:00→22:44)
[2018-06-19] MEDS ORDERED: SODIUM CHLORIDE 0.9%, 500ML IVBOLUS ONE (19:00)
[2018-06-20] MEDS: POLYETHYLENE GLYCOL 17 GM PACKET PO PRN ×2 (00:15→21:23)
[2018-06-20] MEDS: SENNOSIDES 8.8 MG/5 ML ORAL SOL NG PRN ×2 (00:15→21:24)
[2018-06-20] MEDS: HYDROcodone/APAP 5/325 TABLET PO PRN ×3 (02:49→15:47)
[2018-06-20] MEDS: ALBUTEROL/IPRATROPIUM 2.5MG/0.5MG, 3 ML INLINE SCH ×6 (03:30→23:09)
[2018-06-20 04:00] VITALS: BP 87/45
[2018-06-20 04:33] LABS: MEAN CORPUSCULAR HEMOGLOBIN 27.4 pg (27.0-34.8); MEAN PLATELET VOLUME 8.7 fL (7.4-10.4); PLATELET COUNT 228 x10^3/uL (130-400); RED BLOOD COUNT 2.79 x10^6/uL (3.82-5.3); RED CELL DISTRIBUTION WIDTH 24.9 % (9.6-15.2)
[2018-06-20 04:40] LABS: ANION GAP 4 mmol/L (5-15); CALCIUM 7.9 mg/dL (8.5-10.1); CHLORIDE 97 mmol/L (98-107); CREATININE 0.47 mg/dL (0.55-1.02)
[2018-06-20 05:43] LABS: BASOPHILS # (AUTO) 0.11 x10^3/uL (0-0.1); BASOPHILS % (AUTO) 2 % (0-1); EOSINOPHILS # (AUTO) 0.15 x10^3/uL (0-0.4); EOSINOPHILS % (AUTO) 2 % (1-7); LYMPHOCYTES % (AUTO) 6 % (22-44); MD SCAN; MONOCYTES # (AUTO) 0.52 x10^3/uL (0.2-0.8); MONOCYTES % (AUTO) 8 % (2-9); NEUTROPHILS # (AUTO) 5.47 x10^3/uL (1.8-6.8); NEUTROPHILS % (AUTO) 82 % (42-75)
[2018-06-20] MEDS: INSULIN LISPRO 100 UNITS/ML, PEN SQ-INSULIN SCH ×3 (05:49→17:29)
[2018-06-20] MEDS: CEFTRIAXONE 1,000 MG in SODIUM CHLORIDE 0.9% 50 ML IV SCH (08:27)
[2018-06-20] MEDS ORDERED: MIDAZOLAM 1 MG/ML, 5ML IVPush ONE (09:00)
[2018-06-20] MEDS: PANTOPRAZOLE 40 MG IV IVPush SCH (09:39)
[2018-06-20] MEDS: POTASSIUM CHLORIDE 10% 40 MEQ/30 ML UDC PO SCH ×2 (09:40→21:23)
[2018-06-20] MEDS: SENNA/DOCUSATE TABLET PO SCH (09:40)
[2018-06-20] MEDS: LEVOTHYROXINE 100 MCG INJ IVPush SCH (09:41)
[2018-06-20] MEDS: SODIUM CHLORIDE FLUSH 10ML SYR IVF SCH ×2 (10:02→21:23)
[2018-06-20] MEDS: INSULIN GLARGINE 100 UNITS/ML, PEN SQ-INSULIN SCH (11:54)
[2018-06-20] MEDS ORDERED: NOREPINEPHRINE 4 MG in SODIUM CHLORIDE 0.9% 246 ML IV PRN (13:00)
[2018-06-20] MEDS ORDERED: LIDOCAINE-MPF 2%, 2ML ONE (13:09)
[2018-06-20] MEDS: FUROSEMIDE 100 MG in SODIUM CHLORIDE 0.9% 90 ML IV SCH (14:56)
[2018-06-20] MEDS: THIAMINE 100MG TABLET PO SCH (15:21)
[2018-06-20] MEDS: FOLIC ACID 1 MG TABLET PO SCH (15:21)
[2018-06-20] MEDS: HYDROCORTISONE 100 MG INJ. IVPush SCH ×2 (15:22→21:23)
[2018-06-20] MEDS: LORazepam 2 MG/ML, 1ML IVPush PRN (17:45)
[2018-06-21] MEDS: INSULIN LISPRO 100 UNITS/ML, PEN SQ-INSULIN SCH ×5 (00:42→23:12)
[2018-06-21] MEDS: INSULIN GLARGINE 100 UNITS/ML, PEN SQ-INSULIN SCH ×3 (00:43→23:12)
[2018-06-21] MEDS: HYDROcodone/APAP 5/325 TABLET PO PRN ×5 (01:30→16:55)
[2018-06-21] MEDS: LORazepam 2 MG/ML, 1ML IVPush PRN (02:40)
[2018-06-21] MEDS: BISACODYL 10 MG SUPP PR PRN (02:43)
[2018-06-21] MEDS: ALBUTEROL/IPRATROPIUM 2.5MG/0.5MG, 3 ML INLINE SCH ×6 (03:30→22:14)
[2018-06-21 04:00] VITALS: BP 113/59
[2018-06-21 05:00] LABS: MEAN CORPUSCULAR HEMOGLOBIN 26.8 pg (27.0-34.8); MEAN CORPUSCULAR HGB CONC 32.5 g/dL (32.4-35.8); MEAN CORPUSCULAR VOLUME 82.5 fL (80-100); MEAN PLATELET VOLUME 9.2 fL (7.4-10.4); PLATELET COUNT 271 x10^3/uL (130-400); RED BLOOD COUNT 2.96 x10^6/uL (3.82-5.3); RED CELL DISTRIBUTION WIDTH 24.5 % (9.6-15.2)
[2018-06-21 05:05] LABS: ANION GAP 3 mmol/L (5-15); CALCIUM 7.9 mg/dL (8.5-10.1); CHLORIDE 98 mmol/L (98-107); CREATININE 0.65 mg/dL (0.55-1.02)
[2018-06-21] MEDS: HYDROCORTISONE 100 MG INJ. IVPush SCH ×3 (05:33→20:48)
[2018-06-21 05:39] LABS: BASOPHILS % (AUTO) 0 % (0-1); EOSINOPHILS % (AUTO) 0 % (1-7); LYMPHOCYTES # (AUTO) 0.33 x10^3/uL (1-3.4); LYMPHOCYTES % (AUTO) 3 % (22-44); MD SCAN; MONOCYTES # (AUTO) 0.55 x10^3/uL (0.2-0.8); MONOCYTES % (AUTO) 5 % (2-9); NEUTROPHILS # (AUTO) 9.66 x10^3/uL (1.8-6.8); NEUTROPHILS % (AUTO) 92 % (42-75)
[2018-06-21] MEDS: FUROSEMIDE 100 MG in SODIUM CHLORIDE 0.9% 90 ML IV SCH (07:14)
[2018-06-21] MEDS ORDERED: MAGNESIUM SULFATE PMX 2GM/50ML 50 ML IV ONE (07:30)
[2018-06-21] MEDS: CEFTRIAXONE 1,000 MG in SODIUM CHLORIDE 0.9% 50 ML IV SCH (09:08)
[2018-06-21] MEDS: LEVOTHYROXINE 100 MCG INJ IVPush SCH (09:09)
[2018-06-21] MEDS: PANTOPRAZOLE 40 MG IV IVPush SCH (09:09)
[2018-06-21] MEDS: SENNA/DOCUSATE TABLET PO SCH (09:09)
[2018-06-21] MEDS: SODIUM CHLORIDE FLUSH 10ML SYR IVF SCH ×2 (11:35→20:48)
[2018-06-21] MEDS ORDERED: ERGOCALCIFEROL 8,000UNIT/ML NG SCH (13:00)
[2018-06-21] MEDS: FOLIC ACID 1 MG TABLET PO SCH (13:15)
[2018-06-21] MEDS: THIAMINE 100MG TABLET PO SCH (13:15)
[2018-06-21] MEDS: CARBAMIDE PEROXIDE EAR DROPS 6.5%, 15ML EACH EAR SCH ×2 (13:16→20:48)
[2018-06-22] MEDS: POLYETHYLENE GLYCOL 17 GM PACKET PO PRN (00:21)
[2018-06-22] MEDS: SENNOSIDES 8.8 MG/5 ML ORAL SOL NG PRN (00:21)
[2018-06-22] MEDS: HYDROcodone/APAP 5/325 TABLET PO PRN ×3 (01:49→15:22)
[2018-06-22] MEDS: ALBUTEROL/IPRATROPIUM 2.5MG/0.5MG, 3 ML INLINE SCH ×6 (02:34→22:14)
[2018-06-22] MEDS: FUROSEMIDE 100 MG in SODIUM CHLORIDE 0.9% 90 ML IV SCH (03:54)
[2018-06-22 04:00] VITALS: BP 122/57
[2018-06-22] MEDS: HYDROCORTISONE 100 MG INJ. IVPush SCH ×3 (05:00→20:57)
[2018-06-22] MEDS: INSULIN LISPRO 100 UNITS/ML, PEN SQ-INSULIN SCH ×4 (05:00→23:45)
[2018-06-22 05:25] LABS: MEAN CORPUSCULAR HEMOGLOBIN 26.4 pg (27.0-34.8); MEAN CORPUSCULAR VOLUME 82.5 fL (80-100); MEAN PLATELET VOLUME 8.7 fL (7.4-10.4); PLATELET COUNT 257 x10^3/uL (130-400); RED BLOOD COUNT 2.84 x10^6/uL (3.82-5.3); RED CELL DISTRIBUTION WIDTH 24.1 % (9.6-15.2)
[2018-06-22 05:31] LABS: ANION GAP 10 mmol/L (5-15); CALCIUM 7.9 mg/dL (8.5-10.1); CHLORIDE 94 mmol/L (98-107); CREATININE 0.68 mg/dL (0.55-1.02); TRIGLYCERIDES 103 mg/dL (50-200)
[2018-06-22 06:01] LABS: <PLATELET ESTIMATE> ADEQUATE; <PLT MORPHOLOGY> NORMAL PLT MORPH; ANISOCYTOSIS 2+; BASOPHILS % (AUTO) 0 % (0-1); EOSINOPHILS % (AUTO) 0 % (1-7); HYPOCHROMIA 1+; LYMPHOCYTES # (AUTO) 0.28 x10^3/uL (1-3.4); LYMPHOCYTES % (AUTO) 3 % (22-44); MD MORPH REVIEW ONLY; MICROCYTOSIS 1+; MONOCYTES # (AUTO) 0.61 x10^3/uL (0.2-0.8); MONOCYTES % (AUTO) 7 % (2-9); NEUTROPHILS # (AUTO) 8.29 x10^3/uL (1.8-6.8); NEUTROPHILS % (AUTO) 90 % (42-75); POLYCHROMASIA 1+
[2018-06-22] MEDS: CARBAMIDE PEROXIDE EAR DROPS 6.5%, 15ML EACH EAR SCH ×2 (07:59→20:57)
[2018-06-22] MEDS: PANTOPRAZOLE 40 MG IV IVPush SCH (07:59)
[2018-06-22] MEDS: SODIUM CHLORIDE FLUSH 10ML SYR IVF SCH ×2 (07:59→20:57)
[2018-06-22] MEDS: LEVOTHYROXINE 100 MCG INJ IVPush SCH (08:00)
[2018-06-22] MEDS: SENNA/DOCUSATE TABLET PO SCH (08:00)
[2018-06-22] MEDS: LACTULOSE 20 GM/30 ML UDC NG PRN (08:00)
[2018-06-22] MEDS ORDERED: MAGNESIUM SULFATE PMX 4GM/100M 100 ML IVPB ONE (09:30)
[2018-06-22] MEDS ORDERED: POTASSIUM PHOSPHATE 44 MEQ in SODIUM CHLORIDE 0.9% 500 ML IV ONE (09:30)
[2018-06-22] MEDS: INSULIN GLARGINE 100 UNITS/ML, PEN SQ-INSULIN SCH (12:02)
[2018-06-22] MEDS ORDERED: PINK LADY ENEMA 490 ML BOTTLE PR PRN (12:30)
[2018-06-22] MEDS: THIAMINE 100MG TABLET PO SCH (13:00)
[2018-06-22] MEDS: FOLIC ACID 1 MG TABLET PO SCH (15:23)
[2018-06-22] MEDS ORDERED: INSULIN GLARGINE 100 UNITS/ML, PEN SQ-INSULIN SCH (23:00)
[2018-06-23] MEDS: HYDROcodone/APAP 5/325 TABLET PO PRN ×3 (00:22→20:46)
[2018-06-23] MEDS: ALBUTEROL/IPRATROPIUM 2.5MG/0.5MG, 3 ML INLINE SCH ×6 (03:05→22:25)
[2018-06-23 04:00] VITALS: BP 126/60
[2018-06-23 05:29] LABS: BASOPHILS # (AUTO) 0.02 x10^3/uL (0-0.1); BASOPHILS % (AUTO) 0 % (0-1); EOSINOPHILS # (AUTO) 0.01 x10^3/uL (0-0.4); EOSINOPHILS % (AUTO) 0 % (1-7); LYMPHOCYTES # (AUTO) 0.23 x10^3/uL (1-3.4); LYMPHOCYTES % (AUTO) 3 % (22-44); MD NO; MEAN CORPUSCULAR HGB CONC 32.7 g/dL (32.4-35.8); MEAN CORPUSCULAR VOLUME 82.5 fL (80-100); MEAN PLATELET VOLUME 8.7 fL (7.4-10.4); MONOCYTES # (AUTO) 0.52 x10^3/uL (0.2-0.8); MONOCYTES % (AUTO) 7 % (2-9); NEUTROPHILS # (AUTO) 6.56 x10^3/uL (1.8-6.8); NEUTROPHILS % (AUTO) 90 % (42-75); PLATELET COUNT 237 x10^3/uL (130-400); RED BLOOD COUNT 2.81 x10^6/uL (3.82-5.3); RED CELL DISTRIBUTION WIDTH 23.7 % (9.6-15.2)
[2018-06-23 05:44] LABS: ANION GAP 5 mmol/L (5-15); CHLORIDE 95 mmol/L (98-107)
[2018-06-23 05:45] LABS: CREATININE 0.66 mg/dL (0.55-1.02)
[2018-06-23] MEDS: INSULIN LISPRO 100 UNITS/ML, PEN SQ-INSULIN SCH ×4 (06:13→23:00)
[2018-06-23] MEDS: HYDROCORTISONE 100 MG INJ. IVPush SCH ×3 (06:13→20:48)
[2018-06-23] MEDS: LEVOTHYROXINE 100 MCG INJ IVPush SCH (08:26)
[2018-06-23] MEDS: SENNA/DOCUSATE TABLET PO SCH (08:26)
[2018-06-23] MEDS: PANTOPRAZOLE 40 MG IV IVPush SCH (08:26)
[2018-06-23] MEDS: CARBAMIDE PEROXIDE EAR DROPS 6.5%, 15ML EACH EAR SCH ×2 (08:26→20:51)
[2018-06-23] MEDS: SODIUM CHLORIDE FLUSH 10ML SYR IVF SCH ×2 (08:27→20:45)
[2018-06-23] MEDS: THIAMINE 100MG TABLET PO SCH (12:02)
[2018-06-23] MEDS: FOLIC ACID 1 MG TABLET PO SCH (12:03)
[2018-06-23] MEDS: INSULIN GLARGINE 100 UNITS/ML, PEN SQ-INSULIN SCH ×2 (12:04→23:12)
[2018-06-23] MEDS: POTASSIUM CHLORIDE 20 MEQ PACKET PO SCH (17:00)
[2018-06-23] MEDS: FUROSEMIDE 40 MG/4 ML IV SCH (17:00)
[2018-06-24] MEDS: HYDROcodone/APAP 5/325 TABLET PO PRN ×2 (01:58→08:16)
[2018-06-24] MEDS: ALBUTEROL/IPRATROPIUM 2.5MG/0.5MG, 3 ML INLINE SCH ×2 (04:05→07:05)
[2018-06-24 04:30] VITALS: BP 114/55
[2018-06-24] MEDS: INSULIN LISPRO 100 UNITS/ML, PEN SQ-INSULIN SCH ×3 (04:38→16:42)
[2018-06-24] MEDS: HYDROCORTISONE 100 MG INJ. IVPush SCH ×3 (04:38→21:16)
[2018-06-24 05:10] LABS: MEAN CORPUSCULAR HEMOGLOBIN 27.1 pg (27.0-34.8); MEAN CORPUSCULAR HGB CONC 33.1 g/dL (32.4-35.8); MEAN CORPUSCULAR VOLUME 81.7 fL (80-100); MEAN PLATELET VOLUME 8.5 fL (7.4-10.4); PLATELET COUNT 223 x10^3/uL (130-400); RED BLOOD COUNT 2.84 x10^6/uL (3.82-5.3); RED CELL DISTRIBUTION WIDTH 23.8 % (9.6-15.2)
[2018-06-24 05:14] LABS: ANION GAP 6 mmol/L (5-15); CALCIUM 8.2 mg/dL (8.5-10.1); CHLORIDE 95 mmol/L (98-107)
[2018-06-24 05:41] LABS: BASOPHILS # (AUTO) 0.03 x10^3/uL (0-0.1); BASOPHILS % (AUTO) 0 % (0-1); EOSINOPHILS # (AUTO) 0.02 x10^3/uL (0-0.4); EOSINOPHILS % (AUTO) 0 % (1-7); LYMPHOCYTES # (AUTO) 0.29 x10^3/uL (1-3.4); LYMPHOCYTES % (AUTO) 4 % (22-44); MD SCAN; MONOCYTES # (AUTO) 0.54 x10^3/uL (0.2-0.8); MONOCYTES % (AUTO) 8 % (2-9); NEUTROPHILS # (AUTO) 5.68 x10^3/uL (1.8-6.8); NEUTROPHILS % (AUTO) 87 % (42-75)
[2018-06-24] MEDS: FUROSEMIDE 40 MG/4 ML IV SCH ×2 (08:10→16:36)
[2018-06-24] MEDS: LEVOTHYROXINE 100 MCG INJ IVPush SCH (08:10)
[2018-06-24] MEDS: POTASSIUM CHLORIDE 20 MEQ PACKET PO SCH ×2 (08:10→16:36)
[2018-06-24] MEDS: SENNA/DOCUSATE TABLET PO SCH (08:10)
[2018-06-24] MEDS: PANTOPRAZOLE 40 MG IV IVPush SCH (08:10)
[2018-06-24] MEDS: SODIUM CHLORIDE FLUSH 10ML SYR IVF SCH ×2 (08:11→21:16)
[2018-06-24] MEDS: CARBAMIDE PEROXIDE EAR DROPS 6.5%, 15ML EACH EAR SCH ×2 (08:26→21:16)
[2018-06-24] MEDS ORDERED: MAGNESIUM SULFATE PMX 2GM/50ML 50 ML IV ONE (09:00)
[2018-06-24] MEDS: ENOXAPARIN 40 MG/0.4 ML SQ SCH (11:09)
[2018-06-24] MEDS: INSULIN GLARGINE 100 UNITS/ML, PEN SQ-INSULIN SCH (11:11)
[2018-06-24] MEDS: ALBUTEROL/IPRATROPIUM 2.5MG/0.5MG, 3 ML NPPB SCH ×4 (12:10→22:49)
[2018-06-24] MEDS: THIAMINE 100MG TABLET PO SCH (14:25)
[2018-06-24] MEDS: FOLIC ACID 1 MG TABLET PO SCH (14:25)
[2018-06-24] MEDS: AMITRIPTYLINE 50 MG TABLET PO PRN (21:16)
[2018-06-25] MEDS: INSULIN LISPRO 100 UNITS/ML, PEN SQ-INSULIN SCH ×5 (00:09→23:34)
[2018-06-25] MEDS: INSULIN GLARGINE 100 UNITS/ML, PEN SQ-INSULIN SCH ×3 (00:13→23:34)
[2018-06-25] MEDS: ALBUTEROL/IPRATROPIUM 2.5MG/0.5MG, 3 ML NPPB SCH ×4 (03:05→20:00)
[2018-06-25 04:00] VITALS: BP 104/56
[2018-06-25] MEDS: HYDROCORTISONE 100 MG INJ. IVPush SCH ×2 (06:07→17:47)
[2018-06-25 06:08] LABS: MEAN CORPUSCULAR HEMOGLOBIN 26.9 pg (27.0-34.8); MEAN CORPUSCULAR HGB CONC 32.4 g/dL (32.4-35.8); MEAN CORPUSCULAR VOLUME 83.2 fL (80-100); MEAN PLATELET VOLUME 8.6 fL (7.4-10.4); PLATELET COUNT 217 x10^3/uL (130-400); RED CELL DISTRIBUTION WIDTH 23.6 % (9.6-15.2)
[2018-06-25 06:23] LABS: ANION GAP 10 mmol/L (5-15); CALCIUM 8.3 mg/dL (8.5-10.1); CHLORIDE 96 mmol/L (98-107)
[2018-06-25 06:25] LABS: CREATININE 0.58 mg/dL (0.55-1.02); TRIGLYCERIDES 102 mg/dL (50-200)
[2018-06-25 06:47] LABS: BASOPHILS % (AUTO) 0 % (0-1); EOSINOPHILS # (AUTO) 0.01 x10^3/uL (0-0.4); EOSINOPHILS % (AUTO) 0 % (1-7); LYMPHOCYTES # (AUTO) 0.29 x10^3/uL (1-3.4); LYMPHOCYTES % (AUTO) 3 % (22-44); MD SCAN; MONOCYTES # (AUTO) 0.52 x10^3/uL (0.2-0.8); MONOCYTES % (AUTO) 6 % (2-9); NEUTROPHILS # (AUTO) 7.65 x10^3/uL (1.8-6.8); NEUTROPHILS % (AUTO) 90 % (42-75)
[2018-06-25] MEDS: SENNA/DOCUSATE TABLET PO SCH (07:59)
[2018-06-25] MEDS: POTASSIUM CHLORIDE 20 MEQ PACKET PO SCH ×3 (07:59→17:46)
[2018-06-25] MEDS: LEVOTHYROXINE 100 MCG INJ IVPush SCH (08:00)
[2018-06-25] MEDS: PANTOPRAZOLE 40 MG IV IVPush SCH (08:00)
[2018-06-25] MEDS: SODIUM CHLORIDE FLUSH 10ML SYR IVF SCH ×2 (08:00→21:04)
[2018-06-25] MEDS: CARBAMIDE PEROXIDE EAR DROPS 6.5%, 15ML EACH EAR SCH ×2 (09:10→21:15)
[2018-06-25] MEDS: FUROSEMIDE 40 MG/4 ML IV SCH ×2 (09:10→17:47)
[2018-06-25] MEDS: ENOXAPARIN 40 MG/0.4 ML SQ SCH (09:11)
[2018-06-25] MEDS: FOLIC ACID 1 MG TABLET PO SCH (12:04)
[2018-06-25] MEDS: THIAMINE 100MG TABLET PO SCH (12:05)
[2018-06-25] MEDS: ACETAMINOPHEN 325 MG TABLET PO PRN (21:49)
[2018-06-26] MEDS: ALBUTEROL/IPRATROPIUM 2.5MG/0.5MG, 3 ML NPPB SCH ×5 (01:41→18:47)
[2018-06-26 04:00] VITALS: BP 106/48
[2018-06-26 04:30] LABS: O2 FLOW 12 L/min
[2018-06-26 04:40] LABS: ANION GAP 7 mmol/L (5-15); CHLORIDE 100 mmol/L (98-107); CREATININE 0.48 mg/dL (0.55-1.02)
[2018-06-26 04:52] LABS: MEAN CORPUSCULAR VOLUME 81.2 fL (80-100); MEAN PLATELET VOLUME 7.9 fL (7.4-10.4); PLATELET COUNT 216 x10^3/uL (130-400); RED BLOOD COUNT 2.97 x10^6/uL (3.82-5.3); RED CELL DISTRIBUTION WIDTH 23.6 % (9.6-15.2)
[2018-06-26] MEDS: INSULIN LISPRO 100 UNITS/ML, PEN SQ-INSULIN SCH ×4 (05:37→20:45)
[2018-06-26 05:42] LABS: BASOPHILS # (AUTO) 0.01 x10^3/uL (0-0.1); BASOPHILS % (AUTO) 0 % (0-1); EOSINOPHILS # (AUTO) 0.24 x10^3/uL (0-0.4); EOSINOPHILS % (AUTO) 3 % (1-7); LYMPHOCYTES % (AUTO) 6 % (22-44); MD SCAN; MONOCYTES # (AUTO) 0.61 x10^3/uL (0.2-0.8); MONOCYTES % (AUTO) 8 % (2-9); NEUTROPHILS # (AUTO) 6.53 x10^3/uL (1.8-6.8); NEUTROPHILS % (AUTO) 83 % (42-75)
[2018-06-26] MEDS: HYDROCORTISONE 100 MG INJ. IVPush SCH ×2 (05:59→20:40)
[2018-06-26] MEDS: FUROSEMIDE 40 MG/4 ML IV SCH (07:30)
[2018-06-26] MEDS: CARBAMIDE PEROXIDE EAR DROPS 6.5%, 15ML EACH EAR SCH (09:00)
[2018-06-26] MEDS ORDERED: MAGNESIUM SULFATE PMX 2GM/50ML 50 ML IV ONE (09:30)
[2018-06-26] MEDS: SENNA/DOCUSATE TABLET PO SCH (10:23)
[2018-06-26] MEDS: PANTOPRAZOLE 40 MG IV IVPush SCH (10:25)
[2018-06-26] MEDS: AcetaZOLAMIDE INJ 500 MG IVPush SCH ×3 (10:25→20:56)
[2018-06-26] MEDS: SODIUM CHLORIDE FLUSH 10ML SYR IVF SCH ×2 (10:26→20:40)
[2018-06-26] MEDS: LEVOTHYROXINE 100 MCG INJ IVPush SCH (10:31)
[2018-06-26] MEDS: POTASSIUM CHLORIDE 20 MEQ PACKET PO SCH ×2 (10:36→15:01)
[2018-06-26] MEDS: ENOXAPARIN 40 MG/0.4 ML SQ SCH (10:37)
[2018-06-26] MEDS: INSULIN GLARGINE 100 UNITS/ML, PEN SQ-INSULIN SCH ×3 (11:00→20:44)
[2018-06-26] MEDS: THIAMINE 100MG TABLET PO SCH (15:00)
[2018-06-26] MEDS: FOLIC ACID 1 MG TABLET PO SCH (15:01)
[2018-06-27 04:46] LABS: MEAN CORPUSCULAR HEMOGLOBIN 25.7 pg (27.0-34.8); MEAN CORPUSCULAR VOLUME 80.5 fL (80-100); MEAN PLATELET VOLUME 8.3 fL (7.4-10.4); PLATELET COUNT 178 x10^3/uL (130-400); RED BLOOD COUNT 2.95 x10^6/uL (3.82-5.3); RED CELL DISTRIBUTION WIDTH 23.6 % (9.6-15.2)
[2018-06-27 04:49] LABS: ANION GAP 8 mmol/L (5-15); CALCIUM 7.8 mg/dL (8.5-10.1); CHLORIDE 100 mmol/L (98-107); CREATININE 0.69 mg/dL (0.55-1.02)
[2018-06-27] MEDS: INSULIN LISPRO 100 UNITS/ML, PEN SQ-INSULIN SCH ×4 (05:28→20:59)
[2018-06-27 05:29] VITALS: BP 122/99
[2018-06-27 06:01] LABS: BASOPHILS % (AUTO) 0 % (0-1); EOSINOPHILS # (AUTO) 0.21 x10^3/uL (0-0.4); EOSINOPHILS % (AUTO) 2 % (1-7); LYMPHOCYTES % (AUTO) 15 % (22-44); MD SCAN; MONOCYTES # (AUTO) 0.43 x10^3/uL (0.2-0.8); MONOCYTES % (AUTO) 5 % (2-9); NEUTROPHILS # (AUTO) 7.04 x10^3/uL (1.8-6.8); NEUTROPHILS % (AUTO) 78 % (42-75)
[2018-06-27] MEDS: ALBUTEROL/IPRATROPIUM 2.5MG/0.5MG, 3 ML NPPB SCH ×4 (07:00→19:10)
[2018-06-27] MEDS: AcetaZOLAMIDE INJ 500 MG IVPush SCH ×2 (09:58→20:54)
[2018-06-27] MEDS: POTASSIUM CHLORIDE 20 MEQ TAB.ER.PRT PO SCH ×2 (09:58→18:05)
[2018-06-27] MEDS: HYDROCORTISONE 100 MG INJ. IVPush SCH (09:58)
[2018-06-27] MEDS: SENNA/DOCUSATE TABLET PO SCH (09:59)
[2018-06-27] MEDS: FAMOTIDINE 20 MG TABLET PO SCH ×2 (09:59→20:54)
[2018-06-27] MEDS: ENOXAPARIN 40 MG/0.4 ML SQ SCH (09:59)
[2018-06-27] MEDS: LEVOTHYROXINE 150 MCG TABLET PO SCH (10:02)
[2018-06-27] MEDS: SODIUM CHLORIDE FLUSH 10ML SYR IVF SCH ×2 (10:02→20:54)
[2018-06-27] MEDS: INSULIN GLARGINE 100 UNITS/ML, PEN SQ-INSULIN SCH ×2 (12:39→20:58)
[2018-06-27] MEDS: THIAMINE 100MG TABLET PO SCH (12:40)
[2018-06-27] MEDS: FOLIC ACID 1 MG TABLET PO SCH (12:40)
[2018-06-28 03:45] VITALS: BP 106/42
[2018-06-28 04:30] LABS: MEAN CORPUSCULAR HEMOGLOBIN 25.8 pg (27.0-34.8); MEAN CORPUSCULAR VOLUME 80.5 fL (80-100); MEAN PLATELET VOLUME 8.2 fL (7.4-10.4); PLATELET COUNT 194 x10^3/uL (130-400); RED BLOOD COUNT 3.01 x10^6/uL (3.82-5.3); RED CELL DISTRIBUTION WIDTH 23.2 % (9.6-15.2)
[2018-06-28 04:34] LABS: ANION GAP 6 mmol/L (5-15); CALCIUM 7.8 mg/dL (8.5-10.1); CHLORIDE 107 mmol/L (98-107); CREATININE 0.67 mg/dL (0.55-1.02); TRIGLYCERIDES 115 mg/dL (50-200)
[2018-06-28] MEDS: INSULIN LISPRO 100 UNITS/ML, PEN SQ-INSULIN SCH ×4 (04:54→20:52)
[2018-06-28 05:48] LABS: BASOPHILS % (AUTO) 0 % (0-1); EOSINOPHILS # (AUTO) 0.13 x10^3/uL (0-0.4); EOSINOPHILS % (AUTO) 2 % (1-7); LYMPHOCYTES # (AUTO) 0.52 x10^3/uL (1-3.4); LYMPHOCYTES % (AUTO) 7 % (22-44); MD SCAN; MONOCYTES # (AUTO) 0.38 x10^3/uL (0.2-0.8); MONOCYTES % (AUTO) 5 % (2-9); NEUTROPHILS # (AUTO) 7.05 x10^3/uL (1.8-6.8); NEUTROPHILS % (AUTO) 87 % (42-75)
[2018-06-28] MEDS: LEVOTHYROXINE 150 MCG TABLET PO SCH (05:56)
[2018-06-28] MEDS: ALBUTEROL/IPRATROPIUM 2.5MG/0.5MG, 3 ML NPPB SCH ×4 (07:00→19:10)
[2018-06-28] MEDS ORDERED: MAGNESIUM SULFATE PMX 2GM/50ML 50 ML IV ONE (08:00)
[2018-06-28] MEDS ORDERED: POTASSIUM CHLORIDE 20 MEQ TAB.ER.PRT PO ONE (08:00)
[2018-06-28] MEDS: FOLIC ACID 1 MG TABLET PO SCH (08:38)
[2018-06-28] MEDS: SENNA/DOCUSATE TABLET PO SCH (08:38)
[2018-06-28] MEDS: THIAMINE 100MG TABLET PO SCH (08:38)
[2018-06-28] MEDS: FAMOTIDINE 20 MG TABLET PO SCH ×2 (08:38→20:39)
[2018-06-28] MEDS: AcetaZOLAMIDE INJ 500 MG IVPush SCH ×2 (08:39→20:40)
[2018-06-28] MEDS: SODIUM CHLORIDE FLUSH 10ML SYR IVF SCH ×2 (08:40→20:40)
[2018-06-28] MEDS ORDERED: ERGOCALCIFEROL 50,000 UNIT CAPSULE PO SCH (09:00)
[2018-06-28] MEDS: ENOXAPARIN 40 MG/0.4 ML SQ SCH (10:01)
[2018-06-28 14:00] VITALS: BP 109/52
[2018-06-28] MEDS: metFORMIN 500 MG TABLET PO SCH (17:08)
[2018-06-28 19:55] VITALS: BP 106/61
[2018-06-28] MEDS: ACETAMINOPHEN 325 MG TABLET PO PRN (20:39)
[2018-06-28] MEDS: AMITRIPTYLINE 50 MG TABLET PO PRN (20:43)
[2018-06-29] MEDS: ACETAMINOPHEN 325 MG TABLET PO PRN (02:46)
[2018-06-29 02:53] VITALS: BP 109/56
[2018-06-29 05:20] LABS: MEAN CORPUSCULAR HEMOGLOBIN 26.4 pg (27.0-34.8); MEAN CORPUSCULAR HGB CONC 32.5 g/dL (32.4-35.8); MEAN CORPUSCULAR VOLUME 81.4 fL (80-100); MEAN PLATELET VOLUME 8.3 fL (7.4-10.4); PLATELET COUNT 193 x10^3/uL (130-400); RED BLOOD COUNT 3.07 x10^6/uL (3.82-5.3); RED CELL DISTRIBUTION WIDTH 23.8 % (9.6-15.2)
[2018-06-29 05:30] LABS: ANION GAP 5 mmol/L (5-15); CALCIUM 8.5 mg/dL (8.5-10.1); CHLORIDE 112 mmol/L (98-107)
[2018-06-29 05:32] LABS: CREATININE 0.62 mg/dL (0.55-1.02)
[2018-06-29] MEDS ORDERED: LEVOTHYROXINE 75 MCG TABLET ONE (06:11)
[2018-06-29] MEDS: LEVOTHYROXINE 150 MCG TABLET PO SCH (06:14)
[2018-06-29] MEDS: INSULIN LISPRO 100 UNITS/ML, PEN SQ-INSULIN SCH ×4 (06:18→21:09)
[2018-06-29 06:23] LABS: BASOPHILS % (AUTO) 0 % (0-1); EOSINOPHILS # (AUTO) 0.27 x10^3/uL (0-0.4); EOSINOPHILS % (AUTO) 3 % (1-7); LYMPHOCYTES # (AUTO) 0.66 x10^3/uL (1-3.4); LYMPHOCYTES % (AUTO) 6 % (22-44); MD SCAN; MONOCYTES # (AUTO) 0.51 x10^3/uL (0.2-0.8); MONOCYTES % (AUTO) 5 % (2-9); NEUTROPHILS % (AUTO) 87 % (42-75)
[2018-06-29] MEDS: ALBUTEROL/IPRATROPIUM 2.5MG/0.5MG, 3 ML NPPB SCH ×4 (06:45→19:54)
[2018-06-29 06:58] VITALS: BP 103/59
[2018-06-29] MEDS ORDERED: MAGNESIUM SULFATE PMX 4GM/100M 100 ML IVPB ONE (07:00)
[2018-06-29] MEDS: AcetaZOLAMIDE INJ 500 MG IVPush SCH ×2 (09:00→10:28)
[2018-06-29] MEDS: SENNA/DOCUSATE TABLET PO SCH (09:00)
[2018-06-29] MEDS: FAMOTIDINE 20 MG TABLET PO SCH ×4 (10:19→23:49)
[2018-06-29] MEDS: SODIUM CHLORIDE FLUSH 10ML SYR IVF SCH ×2 (10:27→21:10)
[2018-06-29] MEDS: metFORMIN 500 MG TABLET PO SCH ×2 (10:27→16:47)
[2018-06-29] MEDS: ENOXAPARIN 40 MG/0.4 ML SQ SCH ×2 (10:28→10:34)
[2018-06-29 12:50] VITALS: BP 110/65
[2018-06-29] MEDS: FOLIC ACID 1 MG TABLET PO SCH (12:55)
[2018-06-29] MEDS: THIAMINE 100MG TABLET PO SCH (12:55)
[2018-06-29 19:26] VITALS: BP 100/52
[2018-06-29] MEDS: AMITRIPTYLINE 50 MG TABLET PO PRN (21:08)
[2018-06-30 02:00] VITALS: BP 98/58
[2018-06-30] MEDS: LEVOTHYROXINE 150 MCG TABLET PO SCH (05:07)
[2018-06-30 06:11] LABS: MEAN CORPUSCULAR HEMOGLOBIN 26.3 pg (27.0-34.8); MEAN CORPUSCULAR HGB CONC 32.4 g/dL (32.4-35.8); MEAN CORPUSCULAR VOLUME 81.1 fL (80-100); PLATELET COUNT 182 x10^3/uL (130-400); RED CELL DISTRIBUTION WIDTH 24.5 % (9.6-15.2)
[2018-06-30 06:21] LABS: ANION GAP 9 mmol/L (5-15); CALCIUM 7.8 mg/dL (8.5-10.1); CHLORIDE 111 mmol/L (98-107)
[2018-06-30 06:31] LABS: BASOPHILS % (AUTO) 0 % (0-1); EOSINOPHILS # (AUTO) 0.22 x10^3/uL (0-0.4); EOSINOPHILS % (AUTO) 2 % (1-7); LYMPHOCYTES # (AUTO) 0.58 x10^3/uL (1-3.4); LYMPHOCYTES % (AUTO) 6 % (22-44); MD SCAN; MONOCYTES # (AUTO) 0.63 x10^3/uL (0.2-0.8); MONOCYTES % (AUTO) 7 % (2-9); NEUTROPHILS # (AUTO) 8.14 x10^3/uL (1.8-6.8); NEUTROPHILS % (AUTO) 85 % (42-75)
[2018-06-30] MEDS: INSULIN LISPRO 100 UNITS/ML, PEN SQ-INSULIN SCH ×4 (07:00→20:50)
[2018-06-30 07:06] VITALS: BP 109/66
[2018-06-30] MEDS: ALBUTEROL/IPRATROPIUM 2.5MG/0.5MG, 3 ML NPPB SCH ×4 (08:20→20:06)
[2018-06-30] MEDS: metFORMIN 500 MG TABLET PO SCH ×2 (08:52→16:09)
[2018-06-30] MEDS: FAMOTIDINE 20 MG TABLET PO SCH ×2 (08:53→20:50)
[2018-06-30] MEDS: SODIUM CHLORIDE FLUSH 10ML SYR IVF SCH ×2 (08:53→20:50)
[2018-06-30] MEDS: SENNA/DOCUSATE TABLET PO SCH (08:53)
[2018-06-30] MEDS: ENOXAPARIN 40 MG/0.4 ML SQ SCH (10:25)
[2018-06-30 12:14] VITALS: BP 114/63
[2018-06-30] MEDS: FOLIC ACID 1 MG TABLET PO SCH (12:42)
[2018-06-30] MEDS: THIAMINE 100MG TABLET PO SCH (12:42)
[2018-06-30 13:19] VITALS: BP 104/53
[2018-06-30 19:46] VITALS: BP 112/60
[2018-06-30] MEDS: AMITRIPTYLINE 50 MG TABLET PO PRN (20:50)
[2018-06-30] MEDS: ACETAMINOPHEN 325 MG TABLET PO PRN (20:50)
[2018-07-01] MEDS ORDERED: PRAMIPREXOLE MC SCH (00:30)
[2018-07-01] MEDS ORDERED: PRAMIPEXOLE MC SCH (00:30)
[2018-07-01 02:19] VITALS: BP 119/71
[2018-07-01] MEDS ORDERED: PRAMIPEXOLE 0.125MG TABLET PO PRN ×2 (03:00)
[2018-07-01] MEDS: LEVOTHYROXINE 150 MCG TABLET PO SCH (05:49)
[2018-07-01 06:18] LABS: MEAN CORPUSCULAR HEMOGLOBIN 25.7 pg (27.0-34.8); MEAN CORPUSCULAR HGB CONC 31.8 g/dL (32.4-35.8); MEAN CORPUSCULAR VOLUME 80.8 fL (80-100); MEAN PLATELET VOLUME 8.9 fL (7.4-10.4); PLATELET COUNT 168 x10^3/uL (130-400); RED BLOOD COUNT 2.92 x10^6/uL (3.82-5.3); RED CELL DISTRIBUTION WIDTH 24.6 % (9.6-15.2)
[2018-07-01 06:26] LABS: ANION GAP 6 mmol/L (5-15); CHLORIDE 113 mmol/L (98-107); CREATININE 0.49 mg/dL (0.55-1.02); TRIGLYCERIDES 115 mg/dL (50-200)
[2018-07-01 06:42] LABS: BASOPHILS % (AUTO) 0 % (0-1); EOSINOPHILS # (AUTO) 0.26 x10^3/uL (0-0.4); EOSINOPHILS % (AUTO) 3 % (1-7); LYMPHOCYTES # (AUTO) 0.59 x10^3/uL (1-3.4); LYMPHOCYTES % (AUTO) 7 % (22-44); MONOCYTES % (AUTO) 8 % (2-9); NEUTROPHILS # (AUTO) 6.52 x10^3/uL (1.8-6.8); NEUTROPHILS % (AUTO) 82 % (42-75)
[2018-07-01 06:44] LABS: MD SCAN
[2018-07-01] MEDS: INSULIN LISPRO 100 UNITS/ML, PEN SQ-INSULIN SCH ×2 (07:00→11:26)
[2018-07-01 07:08] VITALS: BP 104/66
[2018-07-01] MEDS: ALBUTEROL/IPRATROPIUM 2.5MG/0.5MG, 3 ML NPPB SCH ×3 (07:30→14:50)
[2018-07-01] MEDS: SENNA/DOCUSATE TABLET PO SCH (08:00)
[2018-07-01] MEDS: FAMOTIDINE 20 MG TABLET PO SCH (08:00)
[2018-07-01] MEDS: metFORMIN 500 MG TABLET PO SCH (08:00)
[2018-07-01] MEDS: SODIUM CHLORIDE FLUSH 10ML SYR IVF SCH (08:01)
[2018-07-01] MEDS ORDERED: MAGNESIUM SULFATE PMX 4GM/100M 100 ML IV ONE (09:00)
[2018-07-01] MEDS: ENOXAPARIN 40 MG/0.4 ML SQ SCH (10:02)
[2018-07-01] MEDS ORDERED: THIA100T67 PO (12:39)
[2018-07-01] MEDS ORDERED: METF500T PO (12:39)
[2018-07-01] MEDS ORDERED: LEVO150T PO (12:39)
[2018-07-01] MEDS ORDERED: ERGO2000 PO (12:39)
[2018-07-01] MEDS ORDERED: FOLI-17 PO (12:39)
[2018-07-01] MEDS ORDERED: PANT20TA2 PO (12:41)
[2018-07-01 12:54] VITALS: BP 110/61
[2018-07-01] MEDS: FOLIC ACID 1 MG TABLET PO SCH (13:15)
[2018-07-01] MEDS: THIAMINE 100MG TABLET PO SCH (13:15)
[2018-08-18] MEDS ORDERED: HYDROcodone/APAP 5/325 TABLET PO PRN ×2 (10:30)
== END 2018-07-01 15:55 | disposition home health service (06) | DRG 870 ==
LOC: ED 14:47 → EDIP 14:48 → CCU 17:21 → ICU 06-13 16:46 → CCU 06-14 15:22 → 4NOR 06-28 13:17 → DCLOUNGE 07-01 15:43
PROVIDERS: ADMIT Internal Medicine; ATTEND Internal Medicine
PROC: 06L38CZ Occlusion of Esophageal Vein with Extraluminal Device, Via Natural or Artificial Opening Endoscopic (ICD-10-PCS; 2018-06-06)
PROC: 5A1945Z Respiratory Ventilation, 24-96 Consecutive Hours (ICD-10-PCS; 2018-06-06)
PROC: 30233N1 Transfusion of Nonautologous Red Blood Cells into Peripheral Vein, Percutaneous Approach (ICD-10-PCS; 2018-06-06)
PROC: 0BJ08ZZ Inspection of Tracheobronchial Tree, Via Natural or Artificial Opening Endoscopic (ICD-10-PCS; 2018-06-13)
PROC: 5A1955Z Respiratory Ventilation, Greater than 96 Consecutive Hours (ICD-10-PCS; principal; 2018-06-16)
PROC: 0BH18EZ Insertion of Endotracheal Airway into Trachea, Via Natural or Artificial Opening Endoscopic (ICD-10-PCS; 2018-06-16)
PROC: 0BJ08ZZ Inspection of Tracheobronchial Tree, Via Natural or Artificial Opening Endoscopic (ICD-10-PCS; 2018-06-20)
PROC: 02HV33Z Insertion of Infusion Device into Superior Vena Cava, Percutaneous Approach (ICD-10-PCS; 2018-06-20)
PROC: B548ZZA Ultrasonography of Superior Vena Cava, Guidance (ICD-10-PCS; 2018-06-20)
DX: A41.59 Other Gram-negative sepsis (principal); I85.11 Secondary esophageal varices with bleeding; G93.41 Metabolic encephalopathy; J96.21 Acute and chronic respiratory failure with hypoxia; E43 Unspecified severe protein-calorie malnutrition; J18.9 Pneumonia, unspecified organism; F10.239 Alcohol dependence with withdrawal, unspecified; K92.0 Hematemesis; D62 Acute posthemorrhagic anemia; D68.9 Coagulation defect, unspecified; E27.40 Unspecified adrenocortical insufficiency; I47.2 Ventricular tachycardia; J44.0 Chronic obstructive pulmonary disease with (acute) lower respiratory infection; J81.1 Chronic pulmonary edema; K56.7 Ileus, unspecified; N25.81 Secondary hyperparathyroidism of renal origin; N39.0 Urinary tract infection, site not specified; R57.9 Shock, unspecified; Q21.1 Atrial septal defect; Z99.11 Dependence on respirator [ventilator] status; B96.1 Klebsiella pneumoniae [K. pneumoniae] as the cause of diseases classified elsewhere; B96.20 Unspecified Escherichia coli [E. coli] as the cause of diseases classified elsewhere; D50.9 Iron deficiency anemia, unspecified; E03.9 Hypothyroidism, unspecified; E11.649 Type 2 diabetes mellitus with hypoglycemia without coma; E53.8 Deficiency of other specified B group vitamins; E55.9 Vitamin D deficiency, unspecified; F17.200 Nicotine dependence, unspecified, uncomplicated; G25.81 Restless legs syndrome; H61.23 Impacted cerumen, bilateral; K21.9 Gastro-esophageal reflux disease without esophagitis; K70.40 Alcoholic hepatic failure without coma; Z51.5 Encounter for palliative care; Z66 Do not resuscitate; K70.31 Alcoholic cirrhosis of liver with ascites; Z68.27 Body mass index [BMI] 27.0-27.9, adult; Z90.49 Acquired absence of other specified parts of digestive tract
CPT/HCPCS: 31500; 31622; 36415; 36430; 36556; 36569; 36600; 70450; 71045; 71250; 71275; 74018; 76937; 77001; 80048; 80053; 80061; 80307; 81001; 82140; 82306; 82533; 82607; 82728; 82746; 82803; 82805; 82962; 83036; 83540; 83550; 83605; 83690; 83735; 83970; 84100; 84439; 84443; 84478; 84481; 85014; 85018; 85025; 85610; 85730; 86677; 86850; 86900; 86923; 87040; 87070; 87077; 87081; 87086; 87186; 87205; 93005; 93306; 94002; 94003; 94150; 94640; 96365; 96366; 96368; 96372; 96375; 96376; 99291; G0378; J0696; J1650; J1940; J2250; J2354; J2405; J2543; J2704; J2997; J3360; J3411; J3475; J3480; J3486; J7620; P9047; Q9967; C1751; C9113; J0330; J1120; J1720; J1815; J2060; J7030; J7040; J7050; P9016